=== PATIENT | female | born 1970 | race Caucasian/White ===

== ENCOUNTER 2024-02-15 20:35 | Emergency (ER) | payer OTHER, SELFPAY ==
[2024-02-15 20:50] VITALS: BP 139/74; PULSE 78; RESP 18; TEMP 36.9; O2SAT 99; BMI 30.8
--- NOTE | 2024-02-15 21:23 | ED.GENADULT ---
HPI - General Adult General Chief complaint: Hip Injury/Pain Stated complaint: R hip pain Time Seen by Provider: 02/15/24 21:08 History of Present Illness HPI narrative: CC: Right Hip Pain pt. with pain since friday. worse today. denies injury. 53-year-old woman presenting to the emergency department with complaint of right back or hip area pain over the last couple of days. 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 Does not identify specific injury but may have contributed. No radicular symptoms at least down her leg. No trauma. No dysuria frequency urgency or hematuria. No history kidney stones. Denies a history of back trouble in particular. Initially described on presentation that she thinks she has a hip problem. Related Data Home Medications ?Medication ?Instructions ?Recorded ?Confirmed famotidine 20 mg tablet 20 mg PO 3XD PRN 02/15/24 02/15/24 Allergies Allergy/AdvReac Type Severity Reaction Status Date / Time No Known Drug Allergies Allergy Verified 02/15/24 20:52 Review of Systems Status of ROS: Reports: 6 or more systems reviewed and unremarkable except as noted in History and below PFSH PFS Social History Smoking Status: Never smoker Do you use any of these nicotine containing products: None Second hand tobacco smoke exposure: No How often do you have a drink containing alcohol: never How often do you have six or more drinks on one occasion: Never AUDIT-C Alcohol total score: 0 Non-prescribed substance use: denies use service: No Exam Narrative: Exam Narrative: Pleasant. Clearly uncomfortable but not demonstrating excessively. Skin is warm and dry without evidence of injury. Does have good deal of tension surrounding the right SI joint and in the paraspinal musculature above that. No midline back tenderness. No piriformis tenderness. Elevation of right leg causes some discomfort in this area. Negative Uziel's generally. Normal internal and external rotation of the hip. Abdomen is soft nontender. No tenderness to palpation of the greater trochanters. Const: Vital Signs, click to edit/add: Vital Signs - 24 hr 02/15/24 20:50 Temperature 98.5 F Pulse Rate [Right Pulse Oximeter] 78 Respiratory Rate 18 Blood Pressure [Ri ght Upper Arm] 139/74 Pulse Oximetry 99 Oxygen Delivery Me thod Room Air Documenting provider has reviewed patient's vital signs: yes Course Vital Signs Vital signs: Initial Vital Signs Temperature 98.5 F 02/15/24 20:50 Temperature Source Temporal Artery Scan 02/15/24 20:50 Pulse Rate 78 02/15/24 20:50 Respiratory Rate 18 02/15/24 20:50 Blood Pressure 139/74 02/15/24 20:50 Blood Pressure Mean 95 02/15/24 20:50 Blood Pressure Position Supine 02/15/24 20:50 Pulse Oximetry 99 02/15/24 20:50 Oxygen Delivery Method Room Air 02/15/24 20:50 Vital Signs Temperature 98.5 F 02/15/24 20:50 Pulse Rate 78 02/15/24 20:50 Respiratory Rate 18 02/15/24 20:50 Blood Pressure 139/74 02/15/24 20:50 Pulse Oximetry 99 02/15/24 20:50 Oxygen Delivery Method Room Air 02/15/24 20:50 Temperature 98.5 F 02/16/24 00:02 Pulse Rate 74 02/16/24 00:02 Respiratory Rate 18 02/16/24 00:02 Blood Pressure 125/68 02/16/24 00:02 Pulse Oximetry 99 02/16/24 00:02 Oxygen Delivery Method Room Air 02/16/24 00:02 Medications Administered Medications: Discontinued Medications Generic Name Dose Route Start Last Admin Trade Name Freq PRN Reason Stop Dose Admin Cyclobenzaprine HCl 10 mg 02/15/24 21:42 02/15/24 21:57 Cyclobenzaprine Hcl 10 Mg Tablet PO 02/15/24 21:43 10 mg ONCE ONE Administration Lidocaine 1 patch 02/15/24 21:42 02/15/24 21:57 Lidocaine 5% Patch TRANSDERMA 02/15/24 21:43 1 patch ONCE ONE Administration Protocol Oxycodone/Acetaminophen 2 tab 02/15/24 21:42 02/15/24 21:58 Oxycodone/Apap 5-325 Tablet PO 02/15/24 21:43 2 tab ONCE ONE Administration Medical Decision Making MDM Narrative Medical decision making narrative: Seems to have for some reason good deal muscle spasm in the area. I think emanating from the SI joint. No trauma to warrant x-ray imaging at this time and also without significant history of this pain. Given degree of discomfort in the flank area should at least check a urine. I would like to try to break her pain and reassess. Discussed management. Given NSAID Percocet and lidocaine patch due to degree of discomfort. Urinalysis was clear On reassessment overall is improved. Relaxed. See patient discharge plan for further discussion/plan. Lab Data Labs: Lab Results 02/15/24 Range/Units 22:05 Urine Color Yellow (Yellow) Urine Appearance Clear (Clear) Urine pH 5.5 (5.0-8.5) Ur Specific [place] <= 1.005 (1.000-1.030) Urine Protein Negative (Negative) Urine Glucose (UA) Negative (Negative) Urine Ketones Negative (Negative) Urine Blood Negative (Negative) Urine Nitrite Negative (Negative) Urine Bilirubin Negative (Negative) Urine Urobilinogen 0.2 (0.2-1.0) Ur Leukocyte Esterase Negative (Negative) Urine RBC 0-2 (0-2) Urine WBC 0-2 (0-5) Ur Squamous Epith Cells Few (None-Few) Urine Bacteria None (None) Discharge Plan Discharge Clinical Impression: Spasm of muscle of lower back Patient Disposition: Home w/ Parent or Adult Condition: Improved Additional Instructions: It appears that you had some spasm of the muscles of your lower back. This might mean that you have some inflammation of the bones of your spine or perhaps the sacroiliac joint. Please see handouts of exercises that I think will be helpful for you including given the kind of work that you do. Can take up to 800 mg of ibuprofen or up to 1000 mg of acetaminophen per dose. Alternative to the ibuprofen can take up to 500 mg of naproxen 2 times daily. I am prescribing some medication for you from the [facility]. This includes an opiate pain medicine called [place]. Remember that [place] contains 325 mg of acetaminophen per per tablet. Also prescribing prednisone as an anti-inflammatory and cyclobenzaprine as a ?muscle relaxer? from [employer]. If this lidocaine patch is helpful, you can purchase more [id number]. Parece que tuviste alg?n espasmo en los m?sculos de la parte baja de la espalda. [place] podr?a significar que tiene alguna inflamaci?n de los huesos de la [place] vertebral o loraine vez de la articulaci?n sacroil?calderon. Por favor, bre los folletos de ejercicios que creo que ser?n ?tiles para usted, incluso dado el tipo de trabajo que realiza. Puede devika hasta 800 mg de ibuprofeno o hasta 1000 mg de paracetamol por dosis. Alternativa al ibuprofeno puede devika hasta 500 mg de naproxeno 2 veces al d?a. Le estoy recetando algunos medicamentos de [facility]. [place] incluye un analg?sico opi?lead driver llamado [place]. Recuerde que [place] contiene 325 mg de acetaminof?n por tableta. Tambi?n prescribe prednisona zora antiinflamatorio y ciclobenzaprina zora relajante muscular de [facility]. Si calista parche de lidoca?na es ?til, puede comprar m?s de venta real. Prescriptions: No Action famotidine 20 mg tablet 20 mg PO 3XD PRN Follow Up/Referrals: Dustin Bell MD [Primary Care Provider] - Stand Alone Forms: [facility] Info Instructions
[2024-02-15] MEDS: CYCLOBENZAPRINE HCL 10 MG TABLET PO (21:57)
[2024-02-15] MEDS: LIDOCAINE 5% PATCH 1 PATCH TRANSDERMA (21:57)
[2024-02-15] MEDS: OxyCODONE/APAP 5-325 TABLET 2 TAB PO (21:58)
--- OUTSIDE RECORDS SUMMARY | 2024-02-15 22:00 | XMS_ITS | Data Portability ---
Author Name Unknown Address [address] [place] [id number] Phone [phone] Organization [place] - [facility] Address [address] [place] [address] [place] [address] Assessment No assessment recorded. Plan of Treatment Reminders Order Date Submit Date Provider Last Modified By Organization Details Last Modified Time Details Appointments None recorde d. Lab fecal occult blood, stool 2021 022 [facility], [address] [place], [address], 2 13:10:22 HbA1c (hemogl obin A1c), blood 2021 022 [facility], [address] [place] [address], [address], 2 17:09:09 BMP, serum or plasma 2021 022 [facility], [address] [place] [address], [address], 2 17:07:36 CBC w/ diff 2021 022 [facility], [address] [place] [address], [address], 2 17:08:31 lipid panel, blood 2020 021 [facility], [address] [place] [address], [address], 1 11:04:20 lipid panel, serum 2019 020 [facility], [address] [place] [address], [address], 1 15:02:19 hemoglo bin A1C/hem oglobin total, QN, blood 2019 020 [facility], [address] [place] [address], [address], 1 15:02:19 ferriti n, serum or plasma 2019 020 [facility] Not available 0 14:49:59 CMP, serum or plasma 2019 020 [facility], [address] [place] [address], [address], 0 14:49:59 HbA1c (hemogl obin A1c), blood 2019 020 [facility], [address] [place] [address], [address], 0 14:49:59 urinaly sis, dipstic k 2019 020 [facility], [address] [place] [address], [address], 0 14:49:59 TSH, serum or plasma 2019 020 [facility], [address] [place] [address], [address], 0 14:51:09 Referral orthope dic surgeon referra l 2022 023 [email or web address] Not available 3 10:53:25 communi ty health worker referra l 2021 022 [email or web address] Not available 2 13:31:27 Procedures None recorde d. Surgeries None recorde d. Imaging XR, wrist, 3 or more view 2022 023 [facility] Rad[facility], [address] [place], [address], 3 11:06:37 DEXA, axial skeleto n 2022 023 [facility] Radiology Department, [address] [place], [address], 3 16:44:09 XR, chest, 2 view - Pre-op 2021 022 [email or web address] Not available 2 14:14:29 electro cardiog mell - Pre-op 2021 022 [facility] Not available 2 16:06:25 Medication Orders naproxe n 500 mg tablet [address] [facility], [address] [place], [address], 3 14:13:11 famotid ine 20 [address] [facility], [address] [place], [address], 3 11:54:08 Voltare n Arthrit is Pain 1 % topical gel [address] [facility], [address] [place], [address], 3 11:53:24 famotid ine [address] [facility], [address] [place], [address], 2 18:24:49 Clariti n 10 mg tablet [address] [facility], [address] [place], [address], 2 18:24:32 tacroli mus 0.1 % topical ointmen t 2021 [address] [address], [address], 15:56:11 buspiro ne 10 mg tablet [address], [address], 11:57:35 triamci nolone acetoni de 0.1 % topical cream [address], [address], 15:56:13 Patient TargetsNo targets recorded. Patient Instructions Encounter Date Encounter Id Patient Instructions Last Modified By Organization Details Last Modified Time 03/11/2023 [id number] watch for indigestion from shahnaz, add vitamins wilian Not available 03/11/2023 18:26:58 01/28/2023 [id number] coordination of care* - needs optometry [email or web address] Not available 02/05/2023 04:28:19 11/06/2021 [id number] needs support an d follow up wilian Not available 11/06/2021 20:40:08 10/09/2021 [id number] record release wilian Not available 10/09/2021 19:31:05 06/12/2021 low cholesterol diet wilian Not available 06/12/2021 18:39:45 09/05/2020 [id number] low cholesterol diet wilian Not available 09/05/2020 19:16:30 04/11/2020 [id number] Read about RLS o n internet. I will order some labs to rule out other treatable possibilites, then let's talk together in 1-2 weeks. [email or web address] Not available 04/12/2020 16:09:29 Reason for Referral Community Health Worker Refe rral for Prediabetes Referring Physician: Kay Davidson, Family Medicine, Encounter Date: 03/14/2022 Orthopedic Surgeon Referral for Pain of left wrist Referring Physician: Dustin Bell, Internal Medicine, Encounter Date: 03/11/2023 Results Created Date Observation Date Name Description Value Unit Range Abnormal Flag LastModifiedBy Organization Detail LastModifiedTime 10/17/2020 CMP, serum or plasm a creatinine 0.6 Not Available [address], [address], 10/17/2020 15:02:19 10/17/2020 CMP, serum or plasm a ALT 23 Not Available [facility] [address] [place] [address], [address], 10/17/2020 15:02:19 10/17/2020 TSH, serum or plasm a creatinine 0.6 Not Available [address], [address], 10/17/2020 15:02:19 10/17/2020 TSH, serum or plasm a ALT 23 Not Available [facility] [address] [place] [address], [address], 10/17/2020 15:02:19 10/17/2020 lipid panel , serum creatinine 0.6 Not Available [address], [address], 10/17/2020 15:02:19 10/17/2020 lipid panel , serum ALT 23 Not Available [facility] [address] [place] [address], [address], 10/17/2020 15:02:19 08/25/2020 TSH, serum or plasm a white blood count 6.01 Not Available [address], [address], 08/25/2020 14:51:09 08/25/2020 TSH, serum or plasm a hemoblobin 14.4 Not Available [address], [address], 08/25/2020 14:51:09 08/25/2020 TSH, serum or plasm a platelet count 281 Not Available [address], [address], 08/25/2020 14:51:09 08/25/2020 TSH, serum or plasm a A1C 5.8 Not Available [facility] [address] [place] [address], [address], 08/25/2020 14:51:09 08/25/2020 TSH, serum or plasm a createnine 0.6 Not Available [address], [address], 08/25/2020 14:51:09 08/25/2020 TSH, serum or plasm a ALT 23 Not Available [address], [address], 08/25/2020 14:51:09 08/25/2020 TSH, serum or plasm a total cholesterol 216 high Not Available [address], [address], 08/25/2020 14:51:09 08/25/2020 TSH, serum or plasm a triglyceride s 176 Not Available [address], [address], 08/25/2020 14:51:09 08/25/2020 TSH, serum or plasm a HDL 55 Not Available [facility] [address] [place] [address], [address], 08/25/2020 14:51:09 08/25/2020 TSH, serum or plasm a LDL 126 high Not Available [facility] [address] [place] [address], [address], 08/25/2020 14:51:09 08/25/2020 TSH, serum or plasm a ferritin 87 Not Available [address], [address], 08/25/2020 14:51:09 08/25/2020 TSH, serum or plasm a TSH 1.990 Not Available [facility] [address] [place] [address], [address], 08/25/2020 14:51:09 08/22/2008/22/2020 rosalba tin, serum or plasm a white blood count 6.01 Not Available [address], [address], 08/25/2020 14:49:59 08/22/2008/22/2020 rosalba tin, serum or plasm a hemoblobin 14.4 Not Available [address], [address], 08/25/2020 14:49:59 08/22/2008/22/2020 rosalba tin, serum or plasm a platelet count 281 Not Available [facility] [address] [place] [address], [address], 08/25/2020 14:49:59 08/22/2008/22/2020 rosalba tin, serum or plasm a A1C 5.8 Not Available [facility] [address] [place] [address], [address], 08/25/2020 14:49:59 08/22/2008/22/2020 rosalba tin, serum or plasm a createnine 0.6 Not Available [facility] [address] [place] [address], [address], 08/25/2020 14:49:59 08/22/2008/22/2020 rosalba tin, serum or plasm a ALT 23 Not Available [facility] [address] [place] [address], [address], 08/25/2020 14:49:59 08/22/2008/22/2020 rosalba tin, serum or plasm a total cholesterol 216 high Not Available [address], [address], 08/25/2020 14:49:59 08/22/20 20 08/22/2020 rosalba tin, serum or plasm a triglyceride s 176 Not Available [address], [address], 08/25/2020 14:49:59 08/22/20 20 08/22/2020 rosalba tin, serum or plasm a HDL 55 Not Available [facility] [address] [place] [address], [address], 08/25/2020 14:49:59 08/22/20 20 08/22/2020 rosalba tin, serum or plasm a LDL 126 high Not Available [facility] [address] [place] [address], [address], 08/25/2020 14:49:59 08/22/20 20 08/22/2020 rosalba tin, serum or plasm a ferritin 87 Not Available [facility] [address] [place] [address], [address], 08/25/2020 14:49:59 08/22/20 20 08/22/2020 rosalba tin, serum or plasm a TSH 1.990 Not Available [facility] [address] [place] [address], [address], 08/25/2020 14:49:59 08/22/20 20 08/22/2020 lipid panel , serum white blood count 6.01 Not Available [address], [address], 08/25/2020 14:49:59 08/22/20 20 08/22/2020 lipid panel , serum hemoblobin 14.4 Not Available [address], [address], 08/25/2020 14:49:59 08/22/20 20 08/22/2020 lipid panel , serum platelet count 281 Not Available [address], [address], 08/25/2020 14:49:59 08/22/20 20 08/22/2020 lipid panel , serum A1C 5.8 Not Available [facility] [address] [place] [address], [address], 08/25/2020 14:49:59 08/22/20 20 08/22/2020 lipid panel , serum createnine 0.6 Not Available [facility] [address] [place] [address], [address], 08/25/2020 14:49:59 08/22/2008/22/2020 lipid panel , serum ALT 23 Not Available [facility] [address] [place] [address], [address], 08/25/2020 14:49:59 08/22/2008/22/2020 lipid panel , serum total cholesterol 216 high Not Available [address], [address], 08/25/2020 14:49:59 08/22/2008/22/2020 lipid panel , serum triglyceride s 176 Not Available [address], [address], 08/25/2020 14:49:59 08/22/2008/22/2020 lipid panel , serum HDL 55 Not Available [facility] [address] [place] [address], [address], 08/25/2020 14:49:59 08/22/2008/22/2020 lipid panel , serum LDL 126 high Not Available [facility] [address] [place] [address], [address], 08/25/2020 14:49:59 08/22/2008/22/2020 lipid panel , serum ferritin 87 Not Available [facility] [address] [place] [address], [address], 08/25/2020 14:49:59 08/22/20 20 08/22/2020 lipid panel , serum TSH 1.990 Not Available [facility] [address] [place] [address], [address], 08/25/2020 14:49:59 08/22/20 20 08/22/2020 CMP, serum or plasm a white blood count 6.01 Not Available [address], [address], 08/25/2020 14:49:59 08/22/2008/22/2020 CMP, serum or plasm a hemoblobin 14.4 Not Available [address], [address], 08/25/2020 14:49:59 08/22/2008/22/2020 CMP, serum or plasm a platelet count 281 Not Available [address], [address], 08/25/2020 14:49:59 08/22/2008/22/2020 CMP, serum or plasm a A1C 5.8 Not Available [facility] [address] [place] [address], [address], 08/25/2020 14:49:59 08/22/2008/22/2020 CMP, serum or plasm a createnine 0.6 Not Available [address], [address], 08/25/2020 14:49:59 08/22/2008/22/2020 CMP, serum or plasm a ALT 23 Not Available [facility] [address] [place] [address], [address], 08/25/2020 14:49:59 08/22/2008/22/2020 CMP, serum or plasm a total cholesterol 216 high Not Available [address], [address], 08/25/2020 14:49:59 08/22/20 20 08/22/2020 CMP, serum or plasm a triglyceride s 176 Not Available [address], [address], 08/25/2020 14:49:59 08/22/2008/22/2020 CMP, serum or plasm a HDL 55 Not Available [facility] [address] [place] [address], [address], 08/25/2020 14:49:59 08/22/2008/22/2020 CMP, serum or plasm a LDL 126 high Not Available [facility] [address] [place] [address], [address], 08/25/2020 14:49:59 08/22/2008/22/2020 CMP, serum or plasm a ferritin 87 Not Available [facility] [address] [place] [address], [address], 08/25/2020 14:49:59 08/22/2008/22/2020 CMP, serum or plasm a TSH 1.990 Not Available [facility] [address] [place] [address], [address], 08/25/2020 14:49:59 08/22/2008/22/2020 HbA1c (hemo globi n A1c), blood white blood count 6.01 Not Available [address], [address], 08/25/2020 14:49:59 08/22/2008/22/2020 HbA1c (hemo globi n A1c), blood hemoblobin 14.4 Not Available [facility] [address] [place] [address], [address], 08/25/2020 14:49:59 08/22/2008/22/2020 HbA1c (hemo globi n A1c), blood platelet count 281 Not Available [address], [address], 08/25/2020 14:49:59 08/22/2008/22/2020 HbA1c (hemo globi n A1c), blood A1C 5.8 Not Available [facility] [address] [place] [address], [address], 08/25/2020 14:49:59 08/22/2008/22/2020 HbA1c (hemo globi n A1c), blood createnine 0.6 Not Available [facility] [address] [place] [address], [address], 08/25/2020 14:49:59 08/22/2008/22/2020 HbA1c (hemo globi n A1c), blood ALT 23 Not Available [facility] [address] [place] [address], [address], 08/25/2020 14:49:59 08/22/2008/22/2020 HbA1c (hemo globi n A1c), blood total cholesterol 216 high Not Available [facility] [address] [place] [address], [address], 08/25/2020 14:49:59 08/22/2008/22/2020 HbA1c (hemo globi n A1c), blood triglyceride s 176 Not Available [address], [address], 08/25/2020 14:49:59 08/22/2008/22/2020 HbA1c (hemo globi n A1c), blood HDL 55 Not Available [facility] [address] [place] [address], [address], 08/25/2020 14:49:59 08/22/2008/22/2020 HbA1c (hemo globi n A1c), blood LDL 126 high Not Available [facility] [address] [place] [address], [address], 08/25/2020 14:49:59 08/22/2008/22/2020 HbA1c (hemo globi n A1c), blood ferritin 87 Not Available [facility] [address] [place] [address], [address], 08/25/2020 14:49:59 08/22/20 20 08/22/2020 HbA1c (hemo globi n A1c), blood TSH 1.990 Not Available [facility] [address] [place] [address], [address], 08/25/2020 14:49:59 08/22/20 20 08/22/2020 urina lysis , dipst ick white blood count 6.01 Not Available [facility] [address] [place] [address], [address], 08/25/2020 14:49:59 08/22/2008/22/2020 urina lysis , dipst ick hemoblobin 14.4 Not Available [facility] [address] [place] [address], [address], 08/25/2020 14:49:59 08/22/2008/22/2020 urina lysis , dipst ick platelet count 281 Not Available [facility] [address] [place] [address], [address], 08/25/2020 14:49:59 08/22/2008/22/2020 urina lysis , dipst ick A1C 5.8 Not Available [facility] [address] [place] [address], [address], 08/25/2020 14:49:59 08/22/2008/22/2020 urina lysis , dipst ick createnine 0.6 Not Available [facility] [address] [place] [address], [address], 08/25/2020 14:49:59 08/22/2008/22/2020 urina lysis , dipst ick ALT 23 Not Available [facility] [address] [place] [address], [address], 08/25/2020 14:49:59 08/22/20 20 08/22/2020 urina lysis , dipst ick total cholesterol 216 high Not Available [facility] [address] [place] [address], [address], 08/25/2020 14:49:59 08/22/2008/22/2020 urina lysis , dipst ick triglyceride s 176 Not Available [facility] [address] [place] [address], [address], 08/25/2020 14:49:59 08/22/2008/22/2020 urina lysis , dipst ick HDL 55 Not Available [facility] [address] [place] [address], [address], 08/25/2020 14:49:59 08/22/2008/22/2020 urina lysis , dipst ick LDL 126 high Not Available [facility] [address] [place] [address], [address], 08/25/2020 14:49:59 08/22/2008/22/2020 urina lysis , dipst ick ferritin 87 Not Available [facility] [address] [place] [address], [address], 08/25/2020 14:49:59 08/22/2008/22/2020 urina lysis , dipst ick TSH 1.990 Not Available [facility] [address] [place] [address], [address], 08/25/2020 14:49:59 08/22/20 20 08/22/2020 CBC w/ auto diff white blood count 6.01 Not Available [facility] [address] [place] [address], [address], 08/25/2020 14:40:50 08/22/2008/22/2020 CBC w/ auto diff hemoblobin 14.4 Not Available [facility] [address] [place] [address], [address], 08/25/2020 14:40:50 08/22/20 20 08/22/2020 CBC w/ auto diff platelet count 281 Not Available [facility] [address] [place] [address], [address], 08/25/2020 14:40:50 08/22/20 20 08/22/2020 CBC w/ auto diff A1C 5.8 Not Available [facility] [address] [place] [address], [address], 08/25/2020 14:40:50 08/22/20 20 08/22/2020 CBC w/ auto diff createnine 0.6 Not Available [facility] [address] [place] [address], [address], 08/25/2020 14:40:50 08/22/20 20 08/22/2020 CBC w/ auto diff ALT 23 Not Available [facility] [address] [place] [address], [address], 08/25/2020 14:40:50 08/22/20 20 08/22/2020 CBC w/ auto diff total cholesterol 216 high Not Available [facility] [address] [place] [address], [address], 08/25/2020 14:40:50 08/22/20 20 08/22/2020 CBC w/ auto diff triglyceride s 176 Not Available [address], [address], 08/25/2020 14:40:50 08/22/20 20 08/22/2020 CBC w/ auto diff HDL 55 Not Available [facility] [address] [place] [address], [address], 08/25/2020 14:40:50 08/22/20 20 08/22/2020 CBC w/ auto diff LDL 126 high Not Available [facility] [address] [place] [address], [address], 08/25/2020 14:40:50 08/22/20 20 08/22/2020 CBC w/ auto diff ferritin 87 Not Available [facility] [address] [place] [address], [address], 08/25/2020 14:40:50 08/22/2008/22/2020 CBC w/ auto diff TSH 1.990 Not Available [facility] [address] [place] [address], [address], 08/25/2020 14:40:50 08/22/20 20 08/22/2020 hemog lobin A1C/h emogl obin total , QN, blood creatinine 0.6 Not Available [facility] [address] [place] [address], [address], 10/17/2020 12:22:40 08/22/20 20 08/22/2020 hemog lobin A1C/h emogl obin total , QN, blood ALT 23 Not Available [facility] [address] [place] [address], [address], 10/17/2020 12:22:40 05/23/20 21 05/23/2021 CMP, serum or plasm a ALT 22 Not Available [facility] [address] [place] [address], [address], 05/23/2021 16:36:21 05/23/20 21 05/23/2021 CMP, serum or plasm a creatinine .9 Not Available [facility] [address] [place] [address], [address], 05/23/2021 16:36:21 05/23/2005/23/2021 CMP, serum or plasm a HDL 59 Not Available [facility] [address] [place] [address], [address], 05/23/2021 16:36:21 05/23/2005/23/2021 CMP, serum or plasm a LDL 122 Not Available [facility] [address] [place] [address], [address], 05/23/2021 16:36:21 05/23/2005/23/2021 CMP, serum or plasm a total 214 Not Available [facility] [address] [place] [address], [address], 05/23/2021 16:36:21 05/23/2005/23/2021 CMP, serum or plasm a trigliceride s 166 Not Available [address], [address], 05/23/2021 16:36:21 05/23/2005/23/2021 CMP, serum or plasm a microalbumin <[address] [facility] [address] [place] [address], [address], 05/23/2021 16:36:21 05/23/2005/23/2021 CMP, serum or plasm a creatinine 125 Not Available [facility] [address] [place] [address], [address], 05/23/2021 16:36:21 05/23/2005/23/2021 CMP, serum or plasm a HGB 14.4 Not Available [facility] [address] [place] [address], [address], 05/23/2021 16:36:21 05/23/2005/23/2021 CMP, serum or plasm a platelets 277 Not Available [facility] [address] [place] [address], [address], 05/23/2021 16:36:21 05/23/2005/23/2021 CMP, serum or plasm a WBC 5.27 Not Available [facility] [address] [place] [address], [address], 05/23/2021 16:36:21 05/23/2005/23/2021 CMP, serum or plasm a hga1c 5.7 Not Available [facility] [address] [place] [address], [address], 05/23/2021 16:36:21 05/23/20 21 05/23/2021 HbA1c (hemo globi n A1c), blood ALT 22 Not Available [facility] [address] [place] [address], [address], 05/24/2021 13:08:48 05/23/20 21 05/23/2021 HbA1c (hemo globi n A1c), blood creatinine .9 Not Available [facility] [address] [place] [address], [address], 05/24/2021 13:08:48 05/23/20 21 05/23/2021 HbA1c (hemo globi n A1c), blood HDL 59 Not Available [facility] [address] [place] [address], [address], 05/24/2021 13:08:48 05/23/20 21 05/23/2021 HbA1c (hemo globi n A1c), blood LDL 122 Not Available [facility] [address] [place] [address], [address], 05/24/2021 13:08:48 05/23/20 21 05/23/2021 HbA1c (hemo globi n A1c), blood total 214 Not Available [facility] [address] [place] [address], [address], 05/24/2021 13:08:48 05/23/20 21 05/23/2021 HbA1c (hemo globi n A1c), blood trigliceride s 166 Not Available [address], [address], 05/24/2021 13:08:48 05/23/20 21 05/23/2021 HbA1c (hemo globi n A1c), blood microalbumin <[address] [facility] [address] [place] [address], [address], 05/24/2021 13:08:48 05/23/20 21 05/23/2021 HbA1c (hemo globi n A1c), blood creatinine 125 Not Available [facility] [address] [place] [address], [address], 05/24/2021 13:08:48 05/23/20 21 05/23/2021 HbA1c (hemo globi n A1c), blood HGB 14.4 Not Available [facility] [address] [place] [address], [address], 05/24/2021 13:08:48 05/23/20 21 05/23/2021 HbA1c (hemo globi n A1c), blood platelets 277 Not Available [facility] [address] [place] [address], [address], 05/24/2021 13:08:48 05/23/20 21 05/23/2021 HbA1c (hemo globi n A1c), blood WBC 5.27 Not Available [facility] [address] [place] [address], [address], 05/24/2021 13:08:48 05/23/20 21 05/23/2021 HbA1c (hemo globi n A1c), blood hga1c 5.7 Not Available [facility] [address] [place] [address], [address], 05/24/2021 13:08:48 05/23/20 21 05/23/2021 CBC w/ auto diff ALT 22 Not Available [facility] [address] [place] [address], [address], 05/24/2021 13:08:48 05/23/20 21 05/23/2021 CBC w/ auto diff creatinine .9 Not Available [facility] [address] [place] [address], [address], 05/24/2021 13:08:48 05/23/20 21 05/23/2021 CBC w/ auto diff HDL 59 Not Available [facility] [address] [place] [address], [address], 05/24/2021 13:08:48 05/23/20 21 05/23/2021 CBC w/ auto diff LDL 122 Not Available [facility] [address] [place] [address], [address], 05/24/2021 13:08:48 05/23/20 21 05/23/2021 CBC w/ auto diff total 214 Not Available [facility] [address] [place] [address], [address], 05/24/2021 13:08:48 05/23/20 21 05/23/2021 CBC w/ auto diff trigliceride s 166 Not Available [address], [address], 05/24/2021 13:08:48 05/23/20 21 05/23/2021 CBC w/ auto diff microalbumin <[address] [facility] [address] [place] [address], [address], 05/24/2021 13:08:48 05/23/20 21 05/23/2021 CBC w/ auto diff creatinine 125 Not Available [facility] [address] [place] [address], [phone], 05/24/2021 13:08:48 05/23/20 21 05/23/2021 CBC w/ auto diff HGB 14.4 Not Available [facility] Office [address] [place] [address], [address], 05/24/2021 13:08:48 05/23/20 21 05/23/2021 CBC w/ auto diff platelets 277 Not Available [facility] [address] [place] [address], [address], 05/24/2021 13:08:48 05/23/20 21 05/23/2021 CBC w/ auto diff WBC 5.27 Not Available [facility] [address] [place] [address], [address], 05/24/2021 13:08:48 05/23/20 21 05/23/2021 CBC w/ auto diff hga1c 5.7 Not Available [facility] Office [address] [place] [address], [address], 05/24/2021 13:08:48 05/23/20 21 05/23/2021 micro album in, urine ALT 22 Not Available [facility] Office [address] [place] [address], [address], 05/24/2021 13:08:48 05/23/20 21 05/23/2021 micro album in, urine creatinine .9 Not Available [address], [address], 05/24/2021 13:08:48 05/23/20 21 05/23/2021 micro album in, urine HDL 59 Not Available [facility] Office [address] [place] [address], [address], 05/24/2021 13:08:48 05/23/20 21 05/23/2021 micro album in, urine LDL 122 Not Available [facility] Office [address] [place] [address], [address], 05/24/2021 13:08:48 05/23/20 21 05/23/2021 micro album in, urine total 214 Not Available [facility] Office [address] [place] [address], [address], 05/24/2021 13:08:48 05/23/20 21 05/23/2021 micro album in, urine trigliceride s 166 Not Available [address], [address], 05/24/2021 13:08:48 05/23/20 21 05/23/2021 micro album in, urine microalbumin <1 Not Available [address], [address], 05/24/2021 13:08:48 05/23/20 21 05/23/2021 micro album in, urine creatinine 125 Not Available [address], [address], 05/24/2021 13:08:48 05/23/20 21 05/23/2021 micro album in, urine HGB 14.4 Not Available [facility] Office [address] [place] [address], [address], 05/24/2021 13:08:48 05/23/20 21 05/23/2021 micro album in, urine platelets 277 Not Available [facility] Office [address] [place] [address], [address], 05/24/2021 13:08:48 05/23/20 21 05/23/2021 micro album in, urine WBC 5.27 Not Available [facility] Office [address] [place] [address], [address], 05/24/2021 13:08:48 05/23/20 21 05/23/2021 micro album in, urine hga1c 5.7 Not Available [facility] Office [address] [place] [address], [address], 05/24/2021 13:08:48 05/23/20 21 05/23/2021 lipid panel , serum ALT 22 Not Available [facility] Office [address] [place] [address], [address], 05/24/2021 13:08:48 05/23/20 21 05/23/2021 lipid panel , serum creatinine .9 Not Available [address], [address], 05/24/2021 13:08:48 05/23/20 21 05/23/2021 lipid panel , serum HDL 59 Not Available [facility] Office [address] [place] [address], [address], 05/24/2021 13:08:48 05/23/20 21 05/23/2021 lipid panel , serum LDL 122 Not Available [address], [address], 05/24/2021 13:08:48 05/23/20 21 05/23/2021 lipid panel , serum total 214 Not Available [facility] Office [address] [place] [address], [address], 05/24/2021 13:08:48 05/23/20 21 05/23/2021 lipid panel , serum trigliceride s 166 Not Available [address], [address], 05/24/2021 13:08:48 05/23/20 21 05/23/2021 lipid panel , serum microalbumin <1 Not Available [address], [address], 05/24/2021 13:08:48 05/23/20 21 05/23/2021 lipid panel , serum creatinine 125 Not Available [address], [address], 05/24/2021 13:08:48 05/23/20 21 05/23/2021 lipid panel ,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
--- OUTSIDE RECORDS SUMMARY | 2024-02-15 22:00 | XMS_ITS | Clinical Summary ---
Author Name Unknown Organization [facility] Address [place], [place] [address] Care Team Providers Care Hogshead Liner Name Role Phone SebleShanon cedeño MD Primary Care Provider Allergies Active Allergy Reactions Criticality Noted Date Comments Penicillins Stomach Upset 12/04/2007 Medications Medication Sig Dispensed Refills Start Date End Date Status famotidine (PEPCID) 20 mg tabletIndications:LP RD (laryngopharyngeal reflux disease) Take 1 Tablet (20 mg) by mouth at bedtime. May use twice daily as needed. 90 Tablet 3 11/28/2023 Active artificial tears, peg 400 0.4%-propylene glycol 0.3%, (Systane, propylene glycoL,) ophthalmicIndication s:Allergic conjunctivitis of both eyes Instill one drop in each eye 4x/day for 1 week for irritation 10 mL 01/15/2024 Active ketotifen (Zaditor) 0.025 % (0.035 %) ophthalmic solutionIndications: Allergic conjunctivitis of both eyes Place 1 Drop into both eyes two times daily. 5 mL 01/15/2024 Active fluorometholone (FML Liquifilm) 0.1 % ophthalmic suspensionIndication s:Allergic conjunctivitis of both eyes Instill one drop in each eye 4x/day for 1 week then 3x/day for 1 week then 2x/day for 1 week then 1x/day for 1 week then stop 10 mL 02/05/2024 Active fluorometholone (FML) 0.1 % ophthalmic suspensionIndication s:Allergic conjunctivitis of both eyes Place 1 Drop into both eyes four times daily for 7 days. 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 Regular astigmatism 01/31/2006 Lattice degeneration of peripheral retina 2005 Pterygium, unspecified 01/31/2006 Resolved Problems Problem Noted Date Diagnosed Date Resolved Date Other abnormal Papanicolaou smear of cervix and cervical HPV(795.09) 01/24/2009 05/26/2019 Overview: ELZBIETA 1 on colp 01/19 Myopia 01/31/2006 12/30/2008 Encounters Date Type Department Care Team Description 02/15/2024 Nurse Triage [facility] [address] [place] [address] Shanon Pruett MD Hip Pain/problem 02/05/2024 2:40 PM CDT Office Visit [facility] [address] [place] [phone] Lian Whitmore, OD Eye Problem 02/05/2024 Travel 01/15/2024 11:00 AM CDT Office Visit [facility] [address] [place] [phone] Lian Whitmore, OD Eye Problem (Itchy red eyes) 01/15/2024 Travel 12/01/2023 Telephone [facility] [address] [place] [address] Shanon Pruett MD Results 11/28/2023 2:20 PM EXPERIENCE PLANNING STRATEGIST Ancillary Procedure [facility] [address] [place] [place] [address] 11/28/2023 1:10 PM EXPERIENCE PLANNING STRATEGIST Office Visit [facility] [place] [address] Shanon Pruett MD Physical (53 yr/Left shoulder hurts on and off, currently it is not) 11/28/2023 Travel from Last 3 Months Immunizations Name Administration Dates Next Due AMB Influenza, IIV3 (Age >=3 years)(Flu Clinic Only) 09/13/2011,08/30/2010 Hepatitis B (Adult) 09/18/2023,08/19/2023 Influenza A (H1N1), Inactivated 09/29/2009 Influenza, IIV3 (Age 6-35 mos) 09/13/2011 Influenza, IIV3 (Age >=3 years) 10/04/2013,09/21,08/30/2010 Influenza, IIV4 06/16/2018 Influenza, IIV4 (=>6mos) MDV 08/19/2023 MMR 09/18/2023,08/19/2023 Td, Preservative Free (age >= 7 Years) 9 Tdap 08/19/2023,12/30/2008 Family History Medical History Relation Name Comments Good Health Brother 1 Good Health Brother 2 Good Health Brother 3 Good Health Father Good Health Mother Good Health Sister Cancer-breast No Family History Cancer-ovarian No Family History Relation Name Status Comments Brother 1 Brother 2 Brother 3 Father Maternal Grandfather Maternal Grandmother CAD Mother Paternal Grandfather Paternal Grandmother Sister Social History Tobacco Use Types Packs/Day Years Used Date Smoking Tobacco: Never Smokeless Tobacco: Never Tobacco Cessation:Counseling Given: Yes Alcohol Use Standard Drinks/Week Comments No 0 (1 standard drink = 0.6 oz pur e alcohol) PHQ-2 Answer Date Recorded PHQ-2 TOTAL SCORE 4 11/28/2023 Social Connections Answer Date Recorded Frequency of Communication with Friends and Fami ly 0 11/28/2023 Financial Resource Strain Answer Date R ecorded Difficulty of Paying Living Expenses 2 11/28/2023 Difficulty of Paying Living Expenses 1 11/28/2023 Food Insecurity Answer Date Recorded Worried About Running Out of Food in the Last Ye ar 2 11/28/2023 Transportation Needs Answer Date Record ed Lack of Transportation (Medical) 2 11/28/2023 Housing Stability Answer Date Recorded Unable to Pay for Housing in the Last Year 1 11/28/2023 Sex and Gender Information Value Date Recorded Sex Assigned at Not on file Gender Identity Not on file Sexual Orientation Not on file Obstetrics History Para Term AB IAB SAB Ectopic Multiple Livin g Live Births 3 2 2 Date Outcome GA Total Labor Labor/2nd/3rd Weight Sex Delivery Anes PTL Valerie A1 A5 Name Cl in Para Para Comments Had one late loss in third t rimester. Unknown cause, per her report. Last Filed Vital Signs Vital Sign Reading Time Taken Comments Blood Pressure 104/68 11/28/2023 1:21 PM EXPERIENCE PLANNING STRATEGIST Pulse 66 11/28/2023 1:21 PM EXPERIENCE PLANNING STRATEGIST Temperature 36.8 ??C (98.2 ??F) 08/28/2018 10:[address] Respiratory Rate 16 04/28/2019 3:12 PM CDT Oxygen Saturation 98% 11/28/2023 1:21 PM EXPERIENCE PLANNING STRATEGIST Inhaled Oxygen Concentration - - Weight 82.6 kg (182 lb) 11/28/2023 1:21 PM EXPERIENCE PLANNING STRATEGIST Height 161.3 cm (5' 3.5) 11/28/2023 1:21 PM EXPERIENCE PLANNING STRATEGIST Body Mass Index 31.73 11/28/2023 1:21 PM EXPERIENCE PLANNING STRATEGIST Plan of Treatment Upcoming Encounters Date Type Department Care Team (Late st Contact Info) Description 03/09/2024 3:00 PM CDT Nutrition/Dietic layo [facility] [address] [place] [address] [address] [place] [address] Health Maintenance Due Date Last Done Comments Colonoscopy through age 75 2014 Zoster (shingles) series for age 50+ (1 of 2) 2019 Influenza for age 50-64 06/13/2024 08/19/20 23, 06/16/2018, 10/04/2013, Additional history exists BMI (ht and wt on same day) for age 18+ 11/28/2024 11/28/2023, 10/11/2022, 09/13/2021, Additional history exists Mammogram for age 45-75 11/28/2024 11/28/19 24, 10/11/2022, 08/20/2021, Additional history exists Depression screening for age 12+ 12/01/2024 12/01/2023, 11/28/2023, 09/14/2021, Additional history exists Lipids for age 45-75 11/28/2028 11/28/2023, 08/22/2022 ([facility] 01/02/2009, Additional history exists Pap test for age 21-65 11/28/2028 , 11/28/2023, 05/11/2019, Additional history exists Tetanus booster 08/19/2033 08/19/2023, 08/0 04/2009, 12/30/2008 Tdap Completed 08/19/2023, 12/30/2008 COVID-19 vaccine series Completed 09/18/20, 02/13/2021, 01/23/2021 HIV for age 15-65 Completed 11/28/2023 Hepatitis C screening for age 18-79 Completed 11/28/2023 Pneumococcal series for age 6-64 Aged Out No longer eligible based on patient's age to complete this topic Procedures Procedure Name Priority Date/Time Associated Diagnosis Comments XR MAMMO GRISELDA BILAT SCREEN Routine 11/28/2023 2:36 PM EXPERIENCE PLANNING STRATEGIST Visit for screening mammogram ANTI HCV Routine 11/28/2023 2:11 PM EXPERIENCE PLANNING STRATEGIST Need for hepatitis C screening test ANTI HIV 1/2 Routine 11/28/2023 2:11 PM EXPERIENCE PLANNING STRATEGIST Screening for HIV (human immunodeficiency virus) HEMOGLOBIN A1C SCREENING Routine 11/28/2023 2:11 PM EXPERIENCE PLANNING STRATEGIST Diabetes mellitus screening LIPID PANEL W REFLEX MEASURED LDL Routine 11/28/2023 2:11 PM EXPERIENCE PLANNING STRATEGIST Lipid screening SOFTWARE PACKAGER THIN PREP PAP SCREEN IMAGED Routine 11/28/2023 1:45 PM EXPERIENCE PLANNING STRATEGIST Cervical cancer screening HPV THIN PREP Routine 11/28/2023 1:45 PM EXPERIENCE PLANNING STRATEGIST Cervical cancer screening from Last 3 Months Results * XR MAMMO GRISELDA BILAT SCREEN (11/28/2023 2:36 PM EXPERIENCE PLANNING STRATEGIST) Anatomical Region Laterality Modality BREASTS, Breast Left, Breast Right Bilateral Mammography Impressions 11/28/2023 11:12 PM EXPERIENCE PLANNING STRATEGIST ??There is no radiographic evidence for malignancy. ??Recommend annual mammograms. MAMMOGRAM ASSESSMENT: ??ACR 1 Negative PATIENTS: You will also receive a letter with your examination results in an easy to read format. ??If you have questions about your results, please contact your referring provider. Narrative 11/28/2023 11:12 PM EXPERIENCE PLANNING STRATEGIST For Patients: As a result of the Cures Act, medical imaging exams and procedure reports are released immediately into your electronic medical record. You may view this report before your referring provider. If you have questions, please contact your health care provider. XR MAMMO GRISELDA BILAT SCREEN [[id number]] CLINICAL HISTORY: ??This is an asymptomatic 53 y.o. patient. INDICATION FOR EXAM: Mammogram Screening. TECHNIQUE: CC & MLO views were obtained. ??This study was evaluated with the assistance of Computer-Aided Detection. Breast Tomosynthesis was used in interpretation. COMPARISON FILM: Yes [email or web address] FINDINGS: ??The breasts are heterogeneously dense, which may obscure small masses. There are no dominant masses, suspicious micro calcifications or areas of architectural distortion. Shanon Pruett MD MAMMO * HEMOGLOBIN A1C SCREENING (11/28/2023 2:11 PM EXPERIENCE PLANNING STRATEGIST) HEMOGLOBIN A1C SCREENING 5.9 <=6.4 % 11/28/2023 9:54 PM EXPERIENCE PLANNING STRATEGIST [facility] Blood BLOOD SPECIMEN / Unknown Venipuncture / Unknown 11/28/2023 2:11 PM EXPERIENCE PLANNING STRATEGIST 11/28/2023 2:13 PM EXPERIENCE PLANNING STRATEGIST Narrative [facility] - 11/28/2023 9:54 PM EXPERIENCE PLANNING STRATEGIST ? (<5.7%) ?Normal ? (5.7% to 6.4%) ? Indicates prediabetes ? (>=6.5%) ? Confirms diabetes Falsely low levels may be seen with: Recent Transfusion, Recent Significant Blood Loss, Hemolytic Diseases, or Falsely elevated levels may be seen with: Untreated Anemias, Splenectomy Shanon Pruett MD CHEMISTRY Performing Organization Address City/[facility]/ZIP Co de Phone Number [facility] [address] [place] [id number], * (ABNORMAL) LIPID PANEL W REFLEX MEASURED LDL (11/28/2023 2:11 PM EXPERIENCE PLANNING STRATEGIST) CHOLESTEROL,TOTAL 220(H) 100 - 199 mg/dL 11/28/2023 9:31 PM EXPERIENCE PLANNING STRATEGIST [facility] Comment: Cholesterol, Total Reference Ranges Desirable <200 mg/dL Borderline 200-239 mg/dL High >=240 mg/dL TRIGLYCERIDES 74 <150 mg/dL 11/28/2023 9:31 PM EXPERIENCE PLANNING STRATEGIST [facility] HDL CHOLESTEROL 70 >40 mg/dL 9:31 PM EXPERIENCE PLANNING STRATEGIST [facility] NON-HDL CHOLESTEROL 150(H) <145 mg/dl 11/28/2023 9:31 PM EXPERIENCE PLANNING STRATEGIST [facility] CHOL/HDL RATIO 3.14 <4.50 11/28/2023 9:31 PM EXPERIENCE PLANNING STRATEGIST [facility] LDL CHOLESTEROL 135(H) <=130 mg/dL 11/28/2023 9:31 PM EXPERIENCE PLANNING STRATEGIST [facility] VLDL CHOLESTEROL 15 <=30 mg/dL 11/28/2023 9:31 PM EXPERIENCE PLANNING STRATEGIST [facility] PROVIDER ORDERED STATUS RANDOM 11/28/2023 9:31 PM EXPERIENCE PLANNING STRATEGIST [facility] Blood BLOOD SPECIMEN / Unknown Venipuncture / Unknown 11/28/2023 2:11 PM EXPERIENCE PLANNING STRATEGIST 11/28/2023 2:13 PM EXPERIENCE PLANNING STRATEGIST Shanon Pruett MD CHEMISTRY Performing Organization Address City/[facility]/ZIP Co de Phone Number [facility] [address] [place] [id number], [place] * ANTI HCV (11/28/2023 2:11 PM EXPERIENCE PLANNING STRATEGIST) HEPATITIS C ANTIBODY Non-Reacti ve Non-React olaf 11/28/2023 9:27 PM EXPERIENCE PLANNING STRATEGIST [facility] Comment:Please note, per www .CDC.gov: If a patient is known to be at high risk of HCV infection, or is symptomatic, and the physician's suspicion of HCV infection is high, HCV RNA testing is often employed and is of diagnostic value, even after an initial negative anti-HCV test result. Blood BLOOD SPECIMEN / Unknown Venipuncture / Unknown 11/28/2023 2:11 PM EXPERIENCE PLANNING STRATEGIST 11/28/2023 2:13 PM EXPERIENCE PLANNING STRATEGIST Shanon Pruett MD SEND OUTS Performing Organization Address [facility]/RUST de Phone Number [facility] [address] [place] [address], * ANTI HIV 1/2 [63118.0] (11/28/2023 2:11 PM EXPERIENCE PLANNING STRATEGIST) [facility] HIV-1/HIV-2 SCREEN Non-Reacti ve Non-Reacti ve 11/28/2023 9:19 PM EXPERIENCE PLANNING STRATEGIST [facility] Comment:HIV-1 p24 and HIV-1/ HIV-2 Ab Not Detected. Blood BLOOD SPECIMEN / Unknown Venipuncture / Unknown 11/28/2023 2:11 PM EXPERIENCE PLANNING STRATEGIST 11/28/2023 2:13 PM EXPERIENCE PLANNING STRATEGIST Shanon Pruett MD SEND OUTS Performing Organization Address [facility]/RUST de Phone Number [facility] [address] [place] [address], * SOFTWARE PACKAGER THIN PREP PAP SCREEN IMAGED (11/28/2023 1:45 PM EXPERIENCE PLANNING STRATEGIST) Pathologist [facility] Case Report Gynecologic Cytology Report ? Case: [id number] ? Authorizing Provider: ??Shanon Pruett MD Collected: ? 11/28/2023 1345 ? Ordering Location: ? [facility] ?? Received: ?11/28/2023 1516 ? Clinic ? First Screen: ?Amparo Burgess ? Specimen: ?SOFTWARE PACKAGER ThinPrep Vial Screening, Cervical ? 12/03/2023 12:50 PM EXPERIENCE PLANNING STRATEGIST [facility] INTERPRETATION/ RESULT NEGATIVE FOR INTRAEPITHELIAL LESION OR MALIGNANCY (NIL) (none) 12/03/2023 12:50 PM EXPERIENCE PLANNING STRATEGIST [facility] IMEN ADEQUACY Satisfactory for evaluation Endocervical cells cannot be evaluated due to severe atrophy 12/03/2023 12:50 PM EXPERIENCE PLANNING STRATEGIST [facility] HPV REQUEST HPV and PAP 12/03/2023 12:50 PM EXPERIENCE PLANNING STRATEGIST [facility] Date of LMP 201912/03/2023 12:50 PM EXPERIENCE PLANNING STRATEGIST [facility] Last Pap Date 05/11/19 12/03/2023 12:50 PM EXPERIENCE PLANNING STRATEGIST [facility] Last Pap Result NIL 12:50 PM EXPERIENCE PLANNING STRATEGIST [facility] Abnormal Pap or [place] Bx in last 5 years No 12/03/2023 12:50 PM EXPERIENCE PLANNING STRATEGIST [facility] Menstrual Status Postmenopausal 12/03/2023 12:50 PM EXPERIENCE PLANNING STRATEGIST [facility] [place] Bx Done Today No 12/03/2023 12:50 PM EXPERIENCE PLANNING STRATEGIST [facility] Additional Information None given 12/03/2023 12:50 PM EXPERIENCE PLANNING STRATEGIST [facility] Comment: Cytology is screened at [facility] - [address], [place] [address] and [facility] - [address], [place] [address] and [facility] - [address] [place] [address] Interpreted at [facility] - [address], [place] [address] Automated Review Successful 12/03/2023 12:50 PM EXPERIENCE PLANNING STRATEGIST [facility] Comment:Specimen processed s uccessfully by automated boxing promoter device, ThinPrep Imaging System, [employer] ANCILLARY TESTING SOFTWARE PACKAGER HPV Ordered, Please see separate report 12/03/2023 12:50 PM EXPERIENCE PLANNING STRATEGIST [facility] Note The pap test is a screening technique, not a diagnostic procedure. It is used primarily to screen for squamous cancers and precursor lesions. Published studies have shown that it is subject to both false negative and false positive results. The pap test should not be used as the sole means to diagnose or exclude pre-malignant and malignant lesions. 12/03/2023 12:50 PM EXPERIENCE PLANNING STRATEGIST [facility] Other (Cervical) Non-Blood / Unknown 11/28/2023 1:45 PM EXPERIENCE PLANNING STRATEGIST 11/28/2023 3:16 PM EXPERIENCE PLANNING STRATEGIST Shanon Pruett MD PATHOLOGY/CYTOL OGY [facility] [address] [place] [address], * HPV HIGH RISK (11/28/2023 1:45 PM EXPERIENCE PLANNING STRATEGIST) TYPE 16 Negative Negative 12/03/2023 1:43 PM EXPERIENCE PLANNING STRATEGIST [facility] TYPE 18 Negative Negative 12/03/2023 1:43 PM EXPERIENCE PLANNING STRATEGIST [facility] TRAL [facility] OTHER HIGH RISK TYPES Negative Negative 12/03/2023 1:43 PM EXPERIENCE PLANNING STRATEGIST [facility] Other (Cervical) Non-Blood / Unknown 11/28/2023 1:45 PM EXPERIENCE PLANNING STRATEGIST 12/01/2023 12:49 PM EXPERIENCE PLANNING STRATEGIST Narrative [facility] - 12/03/2023 1:43 PM EXPERIENCE PLANNING STRATEGIST HPV types 16, 18, 31, 33, 35, 39, 45, 51, 52, 56, 58, 59, 66 and 68 DNA were undetectable or below the pre-set threshold. Methodology: Ayden [employer] 4800 HPV Test Shanon Pruett MD MICROBIOLOGY [facility] [address] [place] [address], from Last 3 Months Care Teams Hogshead Liner Relationship Specialty Start Date End Date Shanon Pruett MD [address] [place] [phone] PCP - General Family Practice 10/25/10
[2024-02-15 22:13] LABS: Appearance Urine Clear (Clear); Bilirubin Urine Negative (Negative); Blood Urine Negative (Negative); Color Urine Yellow (Yellow); Glucose Urine Negative (Negative); Ketones Urine Negative (Negative); Leukocyte Esterase Urine Negative (Negative); Nitrite Urine Negative (Negative); Protein Urine Negative (Negative); Specific Gravity Urine <= 1.005 (1.000-1.030); Urobilinogen Urine 0.2 (0.2-1.0); pH Urine 5.5 (5.0-8.5)
[2024-02-15 22:19] LABS: RBC Urine 0-2 (0-2); Squamous Epithelial Cell Urine Few (None-Few); WBC Urine 0-2 (0-5)
[2024-02-16 00:02] VITALS: BP 125/68; PULSE 74; RESP 18; TEMP 36.9; O2SAT 99
--- NOTE | 2024-02-16 00:03 | PC.NURSE ---
Written and verbal D/C per MD and RN. Pt acknowledges instructions. MD has also provided exercises. Pt able to ambulate out without diff. Able to get insty meds steroids as ordered.
== END 2024-02-16 00:14 | disposition home or self-care (01) ==
PROVIDERS: Emergency Provider Family Medicine; PCP Internal Medicine
DX: M54.50 Low back pain, unspecified (principal); M62.830 Muscle spasm of back
CPT/HCPCS: 81001; 99283; 99284; A9270

== ENCOUNTER 2025-05-31 15:26 | Outpatient (REF) | payer OTHER, SELFPAY ==
--- OUTSIDE RECORDS SUMMARY | 2025-05-04 06:54 | XMS_ITS | Encounter Summary ---
Author Organization [facility] Address [address] [place] [id number] Care Team Providers Care Referral Manager Name Role Phone No Ref-Primary, Physician Primary Care Provider Encounter Details Date Type Department Care Team (Latest Contact Info) Description 05/04/2025 6:54 AM CDT - 05/04/2025 9:15 AM CDT Hospital Encounter [facility] [place] [address] [place] [address] Patria Mcadams MD [facility] [address] [place], [place] [id number] Discharge Disposition: Home or Self Care Social History Tobacco Use Types Packs/Day Years Used Date Smoking Tobacco: Never Smokeless Tobacco: Never Tobacco Cessation:Counseling Given: Not Answered Alcohol Use Standard Drinks/Week Comments Not Currently 0 (1 standard drink = 0.6 oz pur e alcohol) Comments Unknown Sex and Gender Information Value Date Recorded Sex Assigned at Not on file Legal Sex Female 3:06 PM CDT Gender Identity Not on file Sexual Orientation Not on file documented as of this encounter Last Filed Vital Signs Vital Sign Reading Time Taken Comments Blood Pressure 118/70 05/04/2025 9:05 AM CDT Pulse 57 05/04/2025 9:05 AM CDT Temperature 36.5 C (97.7 F) 05/04/2025 8:00 AM CDT Respiratory Rate 16 05/04/2025 9:05 AM CDT Oxygen Saturation 98% 05/04/2025 9:05 AM CDT Inhaled Oxygen Concentration - - Weight 81.6 kg (180 lb) 05/04/2025 7:34 AM CDT Height - - Body Mass Index - - documented in this encounter Discharge Instructions * Discharge Instructions* Skye Anthony RN - 05/04/2025 8:42 AM CDT The patient has received a copy of the Provation report the doctor has written and discharge instructions have been discussed with the patient and responsible adult. All questions were addressed and answered prior to patient discharge. * Attachments The following attachments cannot be sent through Care Everywhere. * Colon Polyps (Ugandan) * Hemorrhoids (Ugandan) documented in this encounter Procedure Notes * Patria Mcadams MD - 05/04/2025 8:05 AM CDT PRE-PROCEDURE H&P CHIEF COMPLAINT / REASON FOR PROCEDURE: screening PERTINENT HISTORY : History reviewed. No pertinent past medical history. Past Surgical History: Procedure Laterality Date COLONOSCOPY Bleeding tendencies: No Relevant Family History: NONE Relevant Social History: NONE A relevant review of systems was performed and was negative ALLERGIES/SENSITIVITIES: Allergies Allergen Reactions Penicillin G GI Disturbance CURRENT MEDICATIONS: No current outpatient medications on file. PRE-SEDATION ASSESSMENT: Lung Exam: normal Heart Exam: normal Airway Exam: normal Previous reaction to anesthesia/sedation: No Sedation plan based on assessment: Moderate (conscious) sedation ASA Classification: 1 - Healthy patient, no medical problems IMPRESSION: screening PLAN: colonoscopy Patria Mcadams MD [facility] Office: [phone] documented in this encounter Plan of Treatment Not on file documented as of this encounter Procedures Procedure Name Priority Date/Time Associated Diagnosis Comments SURGICAL PATHOLOGY EXAM Routine 05/04/2025 8:23 AM CDT COLONOSCOPY W SNARE REMOVAL TUMOR/POLYP/LESION 05/04/2025 7:55 AM CDT Abdominal pain Special Needs Free Screening Colonoscopy Patient COLONOSCOPY Routine 05/04/2025 7:44 AM CDT documented in this encounter Results * Surgical Pathology Exam (05/04/2025 8:23 AM CDT) Case Report Surgical Pathology Report Case: [id number] Authorizing Provider: Patria Mcadams MD Collected: 05/04/2025 08:23 AM Ordering Location: [facility] Received: 05/04/2025 08:50 AM [facility] [place] Pathologist: Eh Ryder MD Specimens: A) - Large Intestine, Colon, Cecum, cecal polyp x1 B) - Large Intestine, Colon, Ascending, Ascending polyp x1 05/05/2025 10:12 AM CDT LABORATORY Final Diagnosis A. Colon, cecum, polypectomy: -- Hyperplastic polyp. B. Colon, ascending, polypectomy: -- Nondysplastic colonic mucosa without diagnostic abnormality. 05/05/2025 10:12 AM T LABORATORY at 1012 CDT Clinical Information Procedure: Colonoscopy, Screening with polypectomies using exacto cold snare Pre-op Diagnosis: Abdominal pain [R10.9] Post-op Diagnosis: R10.9 - Abdominal pain [ICD-10-CM] 05/05/2025 10:12 AM CDT LABORATORY Gross Description A(1). Large Intestine, Colon, Cecum, cecal polyp x1: The specimen is received in formalin, labeled with the patient's name, medical record number and other identifying information designated cecal polyp x 1. It consists of a 1.3 cm aggregate of montano-pink, shaggy soft tissue fragments, 0.1-0.5 cm. Wrapped and submitted entirely in 1 cassette. B(2). Large Intestine, Colon, Ascending, Ascending polyp x1: The specimen is received in formalin, labeled with the patient's name, medical record number and other identifying information designated ascending polyp x 1. It consists of a 1.2 cm aggregate of montano-pink, shaggy soft tissue fragments, 0.2-1.0 cm. The largest fragment is inked black and sectioned. Submitted entirely in 1 cassette. (MAXINE Caballero)05/04/2025 9:54 AM 05/05/2025 10:12 AM CDT LABORATORY Microscopic Description Microscopic examination was performed. 05/05/2025 10:12 AM [facility] Performing Labs The technical component of this testing was completed at [facility]. Stain controls for all stains resulted within this report have been reviewed and show appropriate reactivity. 05/05/2025 10:12 AM CDT LABORATORY Case Images 05/05/2025 10:12 AM CDT LABORATORY Polyp CECUM STRUCTURE / Unknown 05/04/2025 8:23 AM CDT 05/04/2025 8:50 AM CDT Polyp (morphologic abnormality) ASCENDING COLON STRUCTURE / Unknown 05/04/2025 8:25 AM CDT 05/04/2025 8:50 AM CDT us Patria Mcadams MD LAB - HIEN AP Final Res ult [facility] [address] [facility] (1st floor, no room number) [place] [address], [facility] * COLONOSCOPY (05/04/2025 7:44 AM CDT) COLONOSCOPY [facility] Patient Name: Angelica Gross Mckenzie Procedure Date: 05/04/2025 7:44 AM Date of : 1970 Admit Type: Outpatient Age: 54 Gender: Female Attending MD: PATRIA MCADAMS MD, Total Sedation Time: __23___ minutes of continuous bedside 1:1 Instrument Name: 257 - Pediatric Colonoscope Procedure: Colonoscopy Indications: Screening for colorectal malignant neoplasm Providers: PATRIA MCADAMS MD (Doctor) Referring MD: Medicines: Midazolam 1.5 mg IV, Fentanyl 50 micrograms IV Complications: No immediate complications. Procedure: Pre-Anesthesia Assessment: - Prior to the procedure, a History and Physical was performed, and patient medications and allergies were reviewed. The patient is competent. The risks and benefits of the procedure and the sedation options and risks were discussed with the patient. All questions were answered and informed consent was obtained. Patient identification and proposed procedure were verified by the physician and the nurse in the procedure room. Mental Status Examination: alert and oriented. Airway Examination: normal oropharyngeal airway and neck mobility. Respiratory Examination: clear to auscultation. CV Examination: normal. ASA Grade Assessment: I - A normal, healthy patient. After reviewing the risks and benefits, the patient was deemed in satisfactory condition to undergo the procedure. The anesthesia plan was to use moderate sedation / analgesia (conscious sedation). Immediately prior to administration of medications, the patient was re-assessed for adequacy to receive sedatives. The heart rate, respiratory rate, oxygen saturations, blood pressure, adequacy of pulmonary ventilation, and response to care were monitored throughout the procedure. The physical status of the patient was re-assessed after the procedure. After obtaining informed consent, the colonoscope was passed under direct vision. Throughout the procedure, the patient's blood pressure, pulse, and oxygen saturations were monitored continuously. The Olympus Pediatric Colonoscope Model # [id number]-YI167C, Censitrac # [id number] was introduced through the anus and advanced to the cecum, identified by appendiceal orifice and ileocecal valve. The colonoscopy was performed without difficulty. The patient tolerated the procedure well. The quality of the bowel preparation was excellent. Findings: A 2 mm polyp was found in the cecum. The polyp was sessile. The polyp was removed with a cold snare. Resection and retrieval were complete. A 1 mm polyp was found in the ascending colon. The polyp was sessile. The polyp was removed with a cold snare. Resection and retrieval were complete. Internal hemorrhoids were found during retroflexion. The hemorrhoids were small. The perianal and digital rectal examinations were normal. Impression: - One 2 mm polyp in the cecum, removed with a cold snare. Resected and retrieved. - One 1 mm polyp in the ascending colon, removed with a cold snare. Resected and retrieved. - Internal hemorrhoids. Recommendation: - Await pathology results. Procedure Code(s): --- Professional --- 46017, Colonoscopy, flexible; with removal of tumor(s), polyp(s), or other lesion(s) by snare technique CPT copyright 2021 [employer]. All rights reserved. The codes documented in this report are preliminary and upon pipe coverer review may be revised to meet current compliance requirements. Electronically signed by Shelia Mcadams M.D. PATRIA MCADAMS MD 05/04/2025 8:40:04 AM I was physically present for the entire viewing portion of the exam. PATRIA MCADAMS MD Number of Addenda: 0 Note Initiated On: 05/04/2025 7:44 AM Procedure Date: 05/04/2025 7:44:36 AM Scope Withdrawal Time: 0 hours 12 minutes 45 seconds Total Procedure Duration: 0 hours 20 minutes 15 seconds Estimated Blood Loss: Scope In: 8:12:21 AM Scope Out: 8:32:36 AM RADIOLOGY RESULTS 05/04/2025 7:44 AM CDT us Patria Mcadams MD PROCEDURES Final Res ult RADIOLOGY RESULTS documented in this encounter Visit Diagnoses Not on filedocumented in this encounter Administered Medications Inactive Administered Medications - up to 3 most recent administrations Medication Order MAR Action Action Date Dose Rate Site atropine injection 1 mg 1 mg, Intravenous, ONCE PRN, other, Bradycardia, Starting on Fri05/04/25 at 0802, For 1 dose, Intra-procedure benzocaine 20% (HURRICAINE/TOPEX) 20 % spray 0.5 mL 0.5 mL (1 spray), Mouth/Throat, ONCE PRN, sore throat, Starting on Fri05/04/25 at 0802, For 1 dose, [place] throat with 1 spray 5 minutes prior to procedure., Intra-procedure diphenhydrAMINE (BENADRYL) injection 25-50 mg 25-50 mg, Intravenous, ONCE PRN, other, for sedations, dose per provider direction., Administer over 1-2 Minutes, Starting on Fri05/04/25 at 0802, For 1 dose, Intra-procedure EPINEPHrine PF (ADRENALIN) injection 0.1 mg 0.1 mg, Submucosal, ONCE PRN, bleeding, Starting on Fri05/04/25 at 0802, For 1 dose, RN to dilute 1 mL (1 mg) of EPINEPHrine with 9 mL of 0.9% sodium chloride to equal a 0.1 mg/mL concentration. Inject 1 mL (0.1 mg) into submucosa via a sclerotherapy injection needle. Not for direct undiluted intravenous injection. (1 mg/mL = 1:1,000 concentration), Intra-procedure fentaNYL (PF) (SUBLIMAZE) injection 25-100 mcg 25-100 mcg, Intravenous, EVERY 5 MIN PRN, severe pain, If inadequate response may repeat every 3 min PRN severe pain; when verbally requested by provider., Starting on Fri05/04/25 at 0802, Doses can be exceeded under direct oversight of patient by physician., Intra-procedure $Given 05/04/2025 8:09 AM CDT 50 mcg flumazenil (ROMAZICON) injection 0.2 mg 0.2 mg, Intravenous, EVERY 1 MIN PRN, benzodiazepine reversal, If inadequate response after 45 seconds, may repeat 0.2 mg IV every 1 minute PRN over sedation., Administer over 1 Minutes, Starting on Fri05/04/25 at 0802, Give over 15 seconds. Maximum total dose of 1 mg. Continue monitoring until discharge criteria met for a minimum of 2 hours. Use with caution in patients on benzodiazepine therapy., Intra-procedure flumazenil (ROMAZICON) injection 0.2 mg 0.2 mg, Intravenous, EVERY 1 MIN PRN, benzodiazepine reversal, over sedation, Administer over 1 Minutes, Starting on Fri05/04/25 at 0842, For 12 hours, Give over 15 seconds. If inadequate response after 45 seconds, may repeat up to a MAX total dose of 1 mg. Continue monitoring until discharge criteria are met for a minimum of 2 hours Use with caution in patients on benzodiazepine therapy. glucagon injection 0.5 mg 0.5 mg, Intravenous, ONCE PRN, other, gi motility, Starting on Fri05/04/25 at 0802, For 1 dose, Intra-procedure lidocaine (LMX4) cream Topical, EVERY 1 HOUR PRN, pain, with VAD insertion, Starting on Fri05/04/25 at 0803, Apply at least 30 minutes prior to VAD insertion in divided doses as needed for size of site for insertion. MAX Dose: 2.5 g ( of 5 g tube) Do NOT give if patient has a history of allergy to any local anesthetic or any josé luis product. Do NOT use both lidocaine intradermal/subcutaneous injection and the lidocaine cream on the same site., Pre-procedure lidocaine 1 % 0.1-1 mL 0.1-1 mL, Other, EVERY 1 HOUR PRN, mild pain with VAD insertion, Starting on Fri05/04/25 at 0803, MAX dose 1 mL subcutaneous OR intradermal along the side of the vein in divided doses as needed for VAD insertion. Do NOT give if patient has a history of allergy to any local anesthetic or any josé luis product. Do NOT use both lidocaine intradermal/subcutaneous injection and the lidocaine cream on the same site., Pre-procedure midazolam (VERSED) injection 0.5-2 mg 0.5-2 mg, Intravenous, EVERY 4 MIN PRN, sedation, If inadequate response may repeat every 4 minutes PRN sedation until desired response; when verbally requested by provider., Starting on Fri05/04/25 at 0802, Doses can be exceeded under direct oversight of patient by physician. This drug may cause significant respiratory depression. Monitor respiratory status and vital signs carefully for 1 hour after each dose., Intra-procedure $Given 05/04/2025 8:12 AM CDT 0.5 mg $Given 05/04/2025 8:09 AM CDT 1 mg naloxone (NARCAN) injection 0.2 mg 0.2 mg, Intravenous, EVERY 2 MIN PRN, opioid reversal, Starting on Fri05/04/25 at 0802, Administer intravenous route when available and notify provider when administered. For unintended sedation or respiratory depression if all of the below criteria are met: ~ respiratory rate LESS than or EQUAL to 8. ~SaO2 less than 92% and or/end-tidal CO2 is greater than 50. ~ the patient is receiving an opioid, has unintended sedations assessed as RASS (-3), and is currently not on mechanical ventilation. RASS scale moderate (-3) is movement or eye opening to voice but no eye contact. Patient Monitoring Once the patient has demonstrated a response to the naloxone, continue to monitor respiratory rate, depth, oxygen saturation and end-tidal CO2 (if available) every 15 minutes x 2, then every 30 minutes x 2, then every 1 hour x 1 after each naloxone dose. Consider transfer to ICU if patient respiratory parameters have not improved after 4 naloxone doses., Intra-procedure naloxone (NARCAN) injection 0.2 mg 0.2 mg, Intramuscular, EVERY 2 MIN PRN, opioid reversal, Starting on Fri05/04/25 at 0802, Administer intramuscular if an intravenous route is not available and notify provider when administered. For unintended sedation or respiratory depression if all of the below criteria are met: ~ respiratory rate LESS than or EQUAL to 8. ~SaO2 less than 92% and or/end-tidal CO2 is greater than 50. ~ the patient is receiving an opioid, has unintended sedations assessed as RASS (-3), and is currently not on mechanical ventilation. RASS scale moderate (-3) is movement or eye opening to voice but no eye contact. Patient Monitoring Once the patient has demonstrated a response to the naloxone, continue to monitor respiratory rate, depth, oxygen saturation and end-tidal CO2 (if available) every 15 minutes x 2, then every 30 minutes x 2, then every 1 hour x 1 after each naloxone dose. Consider transfer to ICU if patient respiratory parameters have not improved after 4 naloxone doses., Intra-procedure naloxone (NARCAN) injection 0.2 mg 0.2 mg, Intravenous, EVERY 2 MIN PRN, opioid reversal, Starting on Fri05/04/25 at 0842, Administer intravenous route when available and notify provider when administered. For unintended sedation or respiratory depression if all of the below criteria are met: ~ respiratory rate LESS than or EQUAL to 8. ~SaO2 less than 92% and or/end-tidal CO2 is greater than 50. ~ the patient is receiving an opioid, has unintended sedations assessed as RASS (-3), and is currently not on mechanical ventilation. RASS scale moderate (-3) is movement or eye opening to voice but no eye contact. Patient Monitoring Once the patient has demonstrated a response to the naloxone, continue to monitor respiratory rate, depth, oxygen saturation and end-tidal CO2 (if available) every 15 minutes x 2, then every 30 minutes x 2, then every 1 hour x 1 after each naloxone dose. Consider transfer to ICU if patient respiratory parameters have not improved after 4 naloxone doses. naloxone (NARCAN) injection 0.2 mg 0.2 mg, Intramuscular, EVERY 2 MIN PRN, opioid reversal, Starting on Fri05/04/25 at 0842, Administer intramuscular if an intravenous route is not available and notify provider when administered. For unintended sedation or respiratory depression if all of the below criteria are met: ~ respiratory rate LESS than or EQUAL to 8. ~SaO2 less than 92% and or/end-tidal CO2 is greater than 50. ~ the patient is receiving an opioid, has unintended sedations assessed as RASS (-3), and is currently not on mechanical ventilation. RASS scale moderate (-3) is movement or eye opening to voice but no eye contact. Patient Monitoring Once the patient has demonstrated a response to the naloxone, continue to monitor respiratory rate, depth, oxygen saturation and end-tidal CO2 (if available) every 15 minutes x 2, then every 30 minutes x 2, then every 1 hour x 1 after each naloxone dose. Consider transfer to ICU if patient respiratory parameters have not improved after 4 naloxone doses. naloxone (NARCAN) injection 0.4 mg 0.4 mg, Intravenous, EVERY 2 MIN PRN, opioid reversal, Starting on Fri05/04/25 at 0802, Administer intravenous route when available and notify provider when administered. For unintended sedation or respiratory depression if all of the below criteria are met: ~ respiratory rate LESS than or EQUAL to 8. ~ SaO2 less than 92% and or/end-tidal CO2 is greater than 50. ~ the patient is receiving an opioid, has unintended sedation assessed as RASS (-4) or (-5) and patient is currently not on mechanical ventilation. RASS scale (-4) is deep sedation with no response to voice but movement or eye opening to physical stimulation. RASS scale (-5) is unarousable. Patient Monitoring Once the patient has demonstrated a response to the naloxone, continue to monitor respiratory rate, depth, oxygen saturation and end-tidal CO2 (if available) every 15 minutes x 2, then every 30 minutes x 2, then every 1 hour x 1 after each naloxone dose. Consider transfer to ICU if patient respiratory parameters have not improved after 4 naloxone doses., Intra-procedure naloxone (NARCAN) injection 0.4 mg 0.4 mg, Intramuscular, EVERY 2 MIN PRN, opioid reversal, Starting on Fri05/04/25 at 0802, Administer intramuscular if an intravenous route is not available and notify provider when administered. For unintended sedation or respiratory depression if all of the below criteria are met: ~ respiratory rate LESS than or EQUAL to 8. ~ SaO2 less than 92% and or/end-tidal CO2 is greater than 50. ~ the patient is receiving an opioid, has unintended sedation assessed as RASS (-4) or (-5) and patient is currently not on mechanical ventilation. RASS scale (-4) is deep sedation with no response to voice but movement or eye opening to physical stimulation. RASS scale (-5) is unarousable. Patient Monitoring Once the patient has demonstrated a response to the naloxone, continue to monitor respiratory rate, depth, oxygen saturation and end-tidal CO2 (if available) every 15 minutes x 2, then every 30 minutes x 2, then every 1 hour x 1 after each naloxone dose. Consider transfer to ICU if patient respiratory parameters have not improved after 4 naloxone doses., Intra-procedure naloxone (NARCAN) injection 0.4 mg 0.4 mg, Intravenous, EVERY 2 MIN PRN, opioid reversal, Starting on Fri05/04/25 at 0842, Administer intravenous route when available and notify provider when administered. For unintended sedation or respiratory depression if all of the below criteria are met: ~ respiratory rate LESS than or EQUAL to 8. ~ SaO2 less than 92% and or/end-tidal CO2 is greater than 50. ~ the patient is receiving an opioid, has unintended sedation assessed as RASS (-4) or (-5) and patient is currently not on mechanical ventilation. RASS scale (-4) is deep sedation with no response to voice but movement or eye opening to physical stimulation. RASS scale (-5) is unarousable. Patient Monitoring Once the patient has demonstrated a response to the naloxone, continue to monitor respiratory rate, depth, oxygen saturation and end-tidal CO2 (if available) every 15 minutes x 2, then every 30 minutes x 2, then every 1 hour x 1 after each naloxone dose. Consider transfer to ICU if patient respiratory parameters have not improved after 4 naloxone doses. naloxone (NARCAN) injection 0.4 mg 0.4 mg, Intramuscular, EVERY 2 MIN PRN, opioid reversal, Starting on Fri05/04/25 at 0842, Administer intramuscular if an intravenous route is not available and notify provider when administered. For unintended sedation or respiratory depression if all of the below criteria are met: ~ respiratory rate LESS than or EQUAL to 8. ~ SaO2 less than 92% and or/end-tidal CO2 is greater than 50. ~ the patient is receiving an opioid, has unintended sedation assessed as RASS (-4) or (-5) and patient is currently not on mechanical ventilation. RASS scale (-4) is deep sedation with no response to voice but movement or eye opening to physical stimulation. RASS scale (-5) is unarousable. Patient Monitoring Once the patient has demonstrated a response to the naloxone, continue to monitor respiratory rate, depth, oxygen saturation and end-tidal CO2 (if available) every 15 minutes x 2, then every 30 minutes x 2, then every 1 hour x 1 after each naloxone dose. Consider transfer to ICU if patient respiratory parameters have not improved after 4 naloxone doses. ondansetron (ZOFRAN ODT) ODT tab 4 mg 4 mg, Oral, EVERY 6 HOURS PRN, nausea/vomiting - 1st line, Starting on Fri05/04/25 at 0842, This is Step 1 of nausea and vomiting management. If nausea not resolved in 15 minutes, go to Step 2 prochlorperazine (COMPAZINE). With dry hands, peel back foil backing and gently remove tablet. Do not push oral disintegrating tablet through foil backing. Administer immediately on tongue and oral disintegrating tablet dissolves in seconds, then swallow with saliva. Liquid not required. ondansetron (ZOFRAN) injection 4 mg 4 mg, Intravenous, ONCE PRN, nausea/vomiting - 1st line, Administer over 2-5 Minutes, Starting on Fri05/04/25 at 0803, For 1 dose, Give in ENDO pre procedure prep area., Pre-procedure ondansetron (ZOFRAN) injection 4 mg 4 mg, Intravenous, EVERY 6 HOURS PRN, nausea/vomiting - 1st line, Administer over 2-5 Minutes, Starting on Fri05/04/25 at 0842, Give IF patient unable to tolerate oral medication. This is Step 1 of nausea and vomiting management. If nausea not resolved in 15 minutes, go to Step 2 prochlorperazine (COMPAZINE). prochlorperazine (COMPAZINE) injection 10 mg 10 mg, Intravenous, EVERY 6 HOURS PRN, nausea/vomiting - 2nd line, Administer over 1-2 Minutes, Starting on Fri05/04/25 at 0842, Give IF patient unable to tolerate oral medication. This is Step 2 of nausea and vomiting management. Give if nausea not resolved 15 minutes after giving ondansetron (ZOFRAN). If nausea not resolved in 15-30 minutes, Notify provider. prochlorperazine (COMPAZINE) tablet 10 mg 10 mg, Oral, EVERY 6 HOURS PRN, nausea/vomiting - 2nd line, Starting on Fri05/04/25 at 0842, This is Step 2 of nausea and vomiting management. Give if nausea not resolved 15 minutes after giving ondansetron (ZOFRAN). If nausea not resolved in 15-30 minutes, Notify provider. simethicone (MYLICON) suspension 133 mg 133 mg, Oral, ONCE PRN, other, gas bubbles, Starting on Fri05/04/25 at 0802, For 1 dose, Give via endoscope, Intra-procedure sodium chloride (PF) 0.9% PF flush 3 mL 3 mL, Intracatheter, EVERY 8 HOURS SCHEDULED, First dose on Fri05/04/25 at 1400, to lock peripheral IV dormant line, Pre-procedure sodium chloride (PF) 0.9% PF flush 3 mL 3 mL, Intracatheter, EVERY 1 MIN PRN, line flush, other, to ensure patency or to lock dormant line, Starting on Fri05/04/25 at 0803, Pre-procedure $Given 05/04/2025 8:12 AM CDT 3 mLs $Given 05/04/2025 8:09 AM CDT 3 mLs sodium chloride (PF) 0.9% PF flush 3 mL 3 mL, Intravenous, EVERY 1 MIN PRN, line flush, Starting on Fri05/04/25 at 0802, Indications: for Peripheral IV flush post IV meds, Intra-procedureIndications:for Peripheral IV flush post IV meds sodium chloride 0.9 % infusion Intravenous, CONTINUOUS PRN, Intra-procedure, Starting on Fri05/04/25 at 0739, Until Fri05/04/25 at 0948 Rate/Dose Verify 05/04/2025 8:04 AM CDT $New Bag 05/04/2025 7:39 AM CDT 125 mL/hr 125 mL/hr sodium chloride 0.9% BOLUS 500 mL Intravenous, 500 mL, ONCE PRN, at 500 mL/hr, Administer over 1 Hours, other, hypotension, Starting on Fri05/04/25 at 0802, For 1 dose, Intra-procedure documented in this encounter Active and Recently Administered Medications Times are shown in CDT. Scheduled Medication Order 05/02/2025 05/03/2025 05/04/2025 sodium chloride (PF) 0.9% PF flush 3 mL 3 mL, Intracatheter, EVERY 8 HOURS SCHEDULED, First dose on Fri05/04/25 at 1400, to lock peripheral IV dormant line, Pre-procedure PRN Medication Order 05/02/2025 05/03/2025 05/04/2025 atropine injection 1 mg 1 mg, Intravenous, ONCE PRN, other, Bradycardia, Starting on Fri05/04/25 at 0802, For 1 dose, Intra-procedure benzocaine 20% (HURRICAINE/TOPEX) 20 % spray 0.5 mL 0.5 mL (1 spray), Mouth/Throat, ONCE PRN, sore throat, Starting on Fri05/04/25 at 0802, For 1 dose, [place] throat with 1 spray 5 minutes prior to procedure., Intra-procedure diphenhydrAMINE (BENADRYL) injection 25-50 mg 25-50 mg, Intravenous, ONCE PRN, other, for sedations, dose per provider direction., Administer over 1-2 Minutes, Starting on Fri05/04/25 at 0802, For 1 dose, Intra-procedure EPINEPHrine PF (ADRENALIN) injection 0.1 mg 0.1 mg, Submucosal, ONCE PRN, bleeding, Starting on Fri05/04/25 at 0802, For 1 dose, RN to dilute 1 mL (1 mg) of EPINEPHrine with 9 mL of 0.9% sodium chloride to equal a 0.1 mg/mL concentration. Inject 1 mL (0.1 mg) into submucosa via a sclerotherapy injection needle. Not for direct undiluted intravenous injection. (1 mg/mL = 1:1,000 concentration), Intra-procedure fentaNYL (PF) (SUBLIMAZE) injection 25-100 mcg 25-100 mcg, Intravenous, EVERY 5 MIN PRN, severe pain, If inadequate response may repeat every 3 min PRN severe pain; when verbally requested by provider., Starting on Fri05/04/25 at 0802, Doses can be exceeded under direct oversight of patient by physician., Intra-procedure 808 ($Given - Provi babatunde: Benita Alfaro RN) flumazenil (ROMAZICON) injection 0.2 mg 0.2 mg, Intravenous, EVERY 1 MIN PRN, benzodiazepine reversal, If inadequate response after 45 seconds, may repeat 0.2 mg IV every 1 minute PRN over sedation., Administer over 1 Minutes, Starting on Fri05/04/25 at 0802, Give over 15 seconds. Maximum total dose of 1 mg. Continue monitoring until discharge criteria met for a minimum of 2 hours. Use with caution in patients on benzodiazepine therapy., Intra-procedure flumazenil (ROMAZICON) injection 0.2 mg 0.2 mg, Intravenous, EVERY 1 MIN PRN, benzodiazepine reversal, over sedation, Administer over 1 Minutes, Starting on Fri05/04/25 at 0842, For 12 hours, Give over 15 seconds. If inadequate response after 45 seconds, may repeat up to a MAX total dose of 1 mg. Continue monitoring until discharge criteria are met for a minimum of 2 hours Use with caution in patients on benzodiazepine therapy. glucagon injection 0.5 mg 0.5 mg, Intravenous, ONCE PRN, other, gi motility, Starting on Fri05/04/25 at 0802, For 1 dose, Intra-procedure lidocaine (LMX4) cream Topical, EVERY 1 HOUR PRN, pain, with VAD insertion, Starting on Fri05/04/25 at 0803, Apply at least 30 minutes prior to VAD insertion in divided doses as needed for size of site for insertion. MAX Dose: 2.5 g ( of 5 g tube) Do NOT give if patient has a history of allergy to any local anesthetic or any josé luis product. Do NOT use both lidocaine intradermal/subcutaneous injection and the lidocaine cream on the same site., Pre-procedure lidocaine 1 % 0.1-1 mL 0.1-1 mL, Other, EVERY 1 HOUR PRN, mild pain with VAD insertion, Starting on Fri05/04/25 at 0803, MAX dose 1 mL subcutaneous OR intradermal along the side of the vein in divided doses as needed for VAD insertion. Do NOT give if patient has a history of allergy to any local anesthetic or any josé luis product. Do NOT use both lidocaine intradermal/subcutaneous injection and the lidocaine cream on the same site., Pre-procedure midazolam (VERSED) injection 0.5-2 mg 0.5-2 mg, Intravenous, EVERY 4 MIN PRN, sedation, If inadequate response may repeat every 4 minutes PRN sedation until desired response; when verbally requested by provider., Starting on Fri05/04/25 at 0802, Doses can be exceeded under direct oversight of patient by physician. This drug may cause significant respiratory depression. Monitor respiratory status and vital signs carefully for 1 hour after each dose., Intra-procedure 08 ($Given - Provi babatunde: Benita Alfaro RN)0812 ($Given - Provider: Benita Alfaro RN) naloxone (NARCAN) injection 0.2 mg(Linked Group 1) 0.2 mg, Intravenous, EVERY 2 MIN PRN, opioid reversal, Starting on Fri05/04/25 at 0802, Administer intravenous route when available and notify provider when administered. For unintended sedation or respiratory depression if all of the below criteria are met: ~ respiratory rate LESS than or EQUAL to 8. ~SaO2 less than 92% and or/end-tidal CO2 is greater than 50. ~ the patient is receiving an opioid, has unintended sedations assessed as RASS (-3), and is currently not on mechanical ventilation. RASS scale moderate (-3) is movement or eye opening to voice but no eye contact. Patient Monitoring Once the patient has demonstrated a response to the naloxone, continue to monitor respiratory rate, depth, oxygen saturation and end-tidal CO2 (if available) every 15 minutes x 2, then every 30 minutes x 2, then every 1 hour x 1 after each naloxone dose. Consider transfer to ICU if patient respiratory parameters have not improved after 4 naloxone doses., Intra-procedure naloxone (NARCAN) injection 0.2 mg(Linked Group 1) 0.2 mg, Intramuscular, EVERY 2 MIN PRN, opioid reversal, Starting on Fri05/04/25 at 0802, Administer intramuscular if an intravenous route is not available and notify provider when administered. For unintended sedation or respiratory depression if all of the below criteria are met: ~ respiratory rate LESS than or EQUAL to 8. ~SaO2 less than 92% and or/end-tidal CO2 is greater than 50. ~ the patient is receiving an opioid, has unintended sedations assessed as RASS (-3), and is currently not on mechanical ventilation. RASS scale moderate (-3) is movement or eye opening to voice but no eye contact. Patient Monitoring Once the patient has demonstrated a response to the naloxone, continue to monitor respiratory rate, depth, oxygen saturation and end-tidal CO2 (if available) every 15 minutes x 2, then every 30 minutes x 2, then every 1 hour x 1 after each naloxone dose. Consider transfer to ICU if patient respiratory parameters have not improved after 4 naloxone doses., Intra-procedure naloxone (NARCAN) injection 0.2 mg 0.2 mg, Intravenous, EVERY 2 MIN PRN, opioid reversal, Starting on Fri05/04/25 at 0842, Administer intravenous route when available and notify provider when administered. For unintended sedation or respiratory depression if all of the below criteria are met: ~ respiratory rate LESS than or EQUAL to 8. ~SaO2 less than 92% and or/end-tidal CO2 is greater than 50. ~ the patient is receiving an opioid, has unintended sedations assessed as RASS (-3), and is currently not on mechanical ventilation. RASS scale moderate (-3) is movement or eye opening to voice but no eye contact. Patient Monitoring Once the patient has demonstrated a response to the naloxone, continue to monitor respiratory rate, depth, oxygen saturation and end-tidal CO2 (if available) every 15 minutes x 2, then every 30 minutes x 2, then every 1 hour x 1 after each naloxone dose. Consider transfer to ICU if patient respiratory parameters have not improved after 4 naloxone doses. naloxone (NARCAN) injection 0.2 mg 0.2 mg, Intramuscular, EVERY 2 MIN PRN, opioid reversal, Starting on Fri05/04/25 at 0842, Administer intramuscular if an intravenous route is not available and notify provider when administered. For unintended sedation or respiratory depression if all of the below criteria are met: ~ respiratory rate LESS than or EQUAL to 8. ~SaO2 less than 92% and or/end-tidal CO2 is greater than 50. ~ the patient is receiving an opioid, has unintended sedations assessed as RASS (-3), and is currently not on mechanical ventilation. RASS scale moderate (-3) is movement or eye opening to voice but no eye contact. Patient Monitoring Once the patient has demonstrated a response to the naloxone, continue to monitor respiratory rate, depth, oxygen saturation and end-tidal CO2 (if available) every 15 minutes x 2, then every 30 minutes x 2, then every 1 hour x 1 after each naloxone dose. Consider transfer to ICU if patient respiratory parameters have not improved after 4 naloxone doses. naloxone (NARCAN) injection 0.4 mg(Linked Group 1) 0.4 mg, Intravenous, EVERY 2 MIN PRN, opioid reversal, Starting on Fri05/04/25 at 0802, Administer intravenous route when available and notify provider when administered. For unintended sedation or respiratory depression if all of the below criteria are met: ~ respiratory rate LESS than or EQUAL to 8. ~ SaO2 less than 92% and or/end-tidal CO2 is greater than 50. ~ the patient is receiving an opioid, has unintended sedation assessed as RASS (-4) or (-5) and patient is currently not on mechanical ventilation. RASS scale (-4) is deep sedation with no response to voice but movement or eye opening to physical stimulation. RASS scale (-5) is unarousable. Patient Monitoring Once the patient has demonstrated a response to the naloxone, continue to monitor respiratory rate, depth, oxygen saturation and end-tidal CO2 (if available) every 15 minutes x 2, then every 30 minutes x 2, then every 1 hour x 1 after each naloxone dose. Consider transfer to ICU if patient respiratory parameters have not improved after 4 naloxone doses., Intra-procedure naloxone (NARCAN) injection 0.4 mg(Linked Group 1) 0.4 mg, Intramuscular, EVERY 2 MIN PRN, opioid reversal, Starting on Fri05/04/25 at 0802, Administer intramuscular if an intravenous route is not available and notify provider when administered. For unintended sedation or respiratory depression if all of the below criteria are met: ~ respiratory rate LESS than or EQUAL to 8. ~ SaO2 less than 92% and or/end-tidal CO2 is greater than 50. ~ the patient is receiving an opioid, has unintended sedation assessed as RASS (-4) or (-5) and patient is currently not on mechanical ventilation. RASS scale (-4) is deep sedation with no response to voice but movement or eye opening to physical stimulation. RASS scale (-5) is unarousable. Patient Monitoring Once the patient has demonstrated a response to the naloxone, continue to monitor respiratory rate, depth, oxygen saturation and end-tidal CO2 (if available) every 15 minutes x 2, then every 30 minutes x 2, then every 1 hour x 1 after each naloxone dose. Consider transfer to ICU if patient respiratory parameters have not improved after 4 naloxone doses., Intra-procedure naloxone (NARCAN) injection 0.4 mg 0.4 mg, Intravenous, EVERY 2 MIN PRN, opioid reversal, Starting on Fri05/04/25 at 0842, Administer intravenous route when available and notify provider when administered. For unintended sedation or respiratory depression if all of the below criteria are met: ~ respiratory rate LESS than or EQUAL to 8. ~ SaO2 less than 92% and or/end-tidal CO2 is greater than 50. ~ the patient is receiving an opioid, has unintended sedation assessed as RASS (-4) or (-5) and patient is currently not on mechanical ventilation. RASS scale (-4) is deep sedation with no response to voice but movement or eye opening to physical stimulation. RASS scale (-5) is unarousable. Patient Monitoring Once the patient has demonstrated a response to the naloxone, continue to monitor respiratory rate, depth, oxygen saturation and end-tidal CO2 (if available) every 15 minutes x 2, then every 30 minutes x 2, then every 1 hour x 1 after each naloxone dose. Consider transfer to ICU if patient respiratory parameters have not improved after 4 naloxone doses. naloxone (NARCAN) injection 0.4 mg 0.4 mg, Intramuscular, EVERY 2 MIN PRN, opioid reversal, Starting on Fri05/04/25 at 0842, Administer intramuscular if an intravenous route is not available and notify provider when administered. For unintended sedation or respiratory depression if all of the below criteria are met: ~ respiratory rate LESS than or EQUAL to 8. ~ SaO2 less than 92% and or/end-tidal CO2 is greater than 50. ~ the patient is receiving an opioid, has unintended sedation assessed as RASS (-4) or (-5) and patient is currently not on mechanical ventilation. RASS scale (-4) is deep sedation with no response to voice but movement or eye opening to physical stimulation. RASS scale (-5) is unarousable. Patient Monitoring Once the patient has demonstrated a response to the naloxone, continue to monitor respiratory rate, depth, oxygen saturation and end-tidal CO2 (if available) every 15 minutes x 2, then every 30 minutes x 2, then every 1 hour x 1 after each naloxone dose. Consider transfer to ICU if patient respiratory parameters have not improved after 4 naloxone doses. ondansetron (ZOFRAN ODT) ODT tab 4 mg(Linked Group 2) 4 mg, Oral, EVERY 6 HOURS PRN, nausea/vomiting - 1st line, Starting on Fri05/04/25 at 0842, This is Step 1 of nausea and vomiting management. If nausea not resolved in 15 minutes, go to Step 2 prochlorperazine (COMPAZINE). With dry hands, peel back foil backing and gently remove tablet. Do not push oral disintegrating tablet through foil backing. Administer immediately on tongue and oral disintegrating tablet dissolves in seconds, then swallow with saliva. Liquid not required. ondansetron (ZOFRAN) injection 4 mg 4 mg, Intravenous, ONCE PRN, nausea/vomiting - 1st line, Administer over 2-5 Minutes, Starting on Fri05/04/25 at 0803, For 1 dose, Give in ENDO pre procedure prep area., Pre-procedure ondansetron (ZOFRAN) injection 4 mg(Linked Group 2) 4 mg, Intravenous, EVERY 6 HOURS PRN, nausea/vomiting - 1st line, Administer over 2-5 Minutes, Starting on Fri05/04/25 at 0842, Give IF patient unable to tolerate oral medication. This is Step 1 of nausea and vomiting management. If nausea not resolved in 15 minutes, go to Step 2 prochlorperazine (COMPAZINE). prochlorperazine (COMPAZINE) injection 10 mg(Linked Group 3) 10 mg, Intravenous, EVERY 6 HOURS PRN, nausea/vomiting - 2nd line, Administer over 1-2 Minutes, Starting on Fri05/04/25 at 0842, Give IF patient unable to tolerate oral medication. This is Step 2 of nausea and vomiting management. Give if nausea not resolved 15 minutes after giving ondansetron (ZOFRAN). If nausea not resolved in 15-30 minutes, Notify provider. prochlorperazine (COMPAZINE) tablet 10 mg(Linked Group 3) 10 mg, Oral, EVERY 6 HOURS PRN, nausea/vomiting - 2nd line, Starting on Fri05/04/25 at 0842, This is Step 2 of nausea and vomiting management. Give if nausea not resolved 15 minutes after giving ondansetron (ZOFRAN). If nausea not resolved in 15-30 minutes, Notify provider. simethicone (MYLICON) suspension 133 mg 133 mg, Oral, ONCE PRN, other, gas bubbles, Starting on Fri05/04/25 at 0802, For 1 dose, Give via endoscope, Intra-procedure sodium chloride (PF) 0.9% PF flush 3 mL 3 mL, Intracatheter, EVERY 1 MIN PRN, line flush, other, to ensure patency or to lock dormant line, Starting on Fri05/04/25 at 0803, Pre-procedure 0809 ($Given - Provi babatunde: Benita Alfaro RN)0812 ($Given - Provider: Benita Alfaro RN) sodium chloride (PF) 0.9% PF flush 3 mL 3 mL, Intravenous, EVERY 1 MIN PRN, line flush, Starting on Fri05/04/25 at 0802, Indications: for Peripheral IV flush post IV meds, Intra-procedure sodium chloride 0.9 % infusion Intravenous, CONTINUOUS PRN, Intra-procedure, Starting on Fri05/04/25 at 0739, Until Fri05/04/25 at 0948 0739 ($New Bag - Pro vider: Cinthia Colunga RN)0804 (Rate/Dose Verify - Provider: Benita Alfaro RN)0827 (Stopped - Provider: Benita Alfaro RN) sodium chloride 0.9% BOLUS 500 mL Intravenous, 500 mL, ONCE PRN, at 500 mL/hr, Administer over 1 Hours, other, hypotension, Starting on Fri05/04/25 at 0802, For 1 dose, Intra-procedure Linked Groups Order Group 1: naloxone (NARCAN) injection 0.2 mgJump to med 0.2 mg, Intravenous, EVERY 2 MIN PRN, opioid reversal, Starting on Fri05/04/25 at 0802, Administer intravenous route when available and notify provider when administered. For unintended sedation or respiratory depression if all of the below criteria are met: ~ respiratory rate LESS than or EQUAL to 8. ~SaO2 less than 92% and or/end-tidal CO2 is greater than 50. ~ the patient is receiving an opioid, has unintended sedations assessed as RASS (-3), and is currently not on mechanical ventilation. RASS scale moderate (-3) is movement or eye opening to voice but no eye contact. Patient Monitoring Once the patient has demonstrated a response to the naloxone, continue to monitor respiratory rate, depth, oxygen saturation and end-tidal CO2 (if available) every 15 minutes x 2, then every 30 minutes x 2, then every 1 hour x 1 after each naloxone dose. Consider transfer to ICU if patient respiratory parameters have not improved after 4 naloxone doses., Intra- procedure Or naloxone (NARCAN) injection 0.4 mgJump to med 0.4 mg, Intravenous, EVERY 2 MIN PRN, opioid reversal, Starting on Fri05/04/25 at 0802, Administer intravenous route when available and notify provider when administered. For unintended sedation or respiratory depression if all of the below criteria are met: ~ respiratory rate LESS than or EQUAL to 8. ~ SaO2 less than 92% and or/end-tidal CO2 is greater than 50. ~ the patient is receiving an opioid, has unintended sedation assessed as RASS (-4) or (-5) and patient is currently not on mechanical ventilation. RASS scale (-4) is deep sedation with no response to voice but movement or eye opening to physical stimulation. RASS scale (-5) is unarousable. Patient Monitoring Once the patient has demonstrated a response to the naloxone, continue to monitor respiratory rate, depth, oxygen saturation and end-tidal CO2 (if available) every 15 minutes x 2, then every 30 minutes x 2, then every 1 hour x 1 after each naloxone dose. Consider transfer to ICU if patient respiratory parameters have not improved after 4 naloxone doses., Intra-procedure Or naloxone (NARCAN) injection 0.2 mgJump to med 0.2 mg, Intramuscular, EVERY 2 MIN PRN, opioid reversal, Starting on Fri05/04/25 at 0802, Administer intramuscular if an intravenous route is not available and notify provider when administered. For unintended sedation or respiratory depression if all of the below criteria are met: ~ respiratory rate LESS than or EQUAL to 8. ~SaO2 less than 92% and or/end-tidal CO2 is greater than 50. ~ the patient is receiving an opioid, has unintended sedations assessed as RASS (-3), and is currently not on mechanical ventilation. RASS scale moderate (-3) is movement or eye opening to voice but no eye contact. Patient Monitoring Once the patient has demonstrated a response to the naloxone, continue to monitor respiratory rate, depth, oxygen saturation and end-tidal CO2 (if available) every 15 minutes x 2, then every 30 minutes x 2, then every 1 hour x 1 after each naloxone dose. Consider transfer to ICU if patient respiratory parameters have not improved after 4 naloxone doses., Intra- procedure Or naloxone (NARCAN) injection 0.4 mgJump to med 0.4 mg, Intramuscular, EVERY 2 MIN PRN, opioid reversal, Starting on Fri05/04/25 at 0802, Administer intramuscular if an intravenous route is not available and notify provider when administered. For unintended sedation or respiratory depression if all of the below criteria are met: ~ respiratory rate LESS than or EQUAL to 8. ~ SaO2 less than 92% and or/end-tidal CO2 is greater than 50. ~ the patient is receiving an opioid, has unintended sedation assessed as RASS (-4) or (-5) and patient is currently not on mechanical ventilation. RASS scale (-4) is deep sedation with no response to voice but movement or eye opening to physical stimulation. RASS scale (-5) is unarousable. Patient Monitoring Once the patient has demonstrated a response to the naloxone, continue to monitor respiratory rate, depth, oxygen saturation and end-tidal CO2 (if available) every 15 minutes x 2, then every 30 minutes x 2, then every 1 hour x 1 after each naloxone dose. Consider transfer to ICU if patient respiratory parameters have not improved after 4 naloxone doses., Intra- procedure Group 2: ondansetron (ZOFRAN ODT) ODT tab 4 mgJump to med 4 mg, Oral, EVERY 6 HOURS PRN, nausea/vomiting - 1st line, Starting on Fri05/04/25 at 0842, This is Step 1 of nausea and vomiting management. If nausea not resolved in 15 minutes, go to Step 2 prochlorperazine (COMPAZINE). With dry hands, peel back foil backing and gently remove tablet. Do not push oral disintegrating tablet through foil backing. Administer immediately on tongue and oral disintegrating tablet dissolves in seconds, then swallow with saliva. Liquid not required. Or ondansetron (ZOFRAN) injection 4 mgJump to med 4 mg, Intravenous, EVERY 6 HOURS PRN, nausea/vomiting - 1st line, Administer over 2-5 Minutes, Starting on Fri05/04/25 at 0842, Give IF patient unable to tolerate oral medication. This is Step 1 of nausea and vomiting management. If nausea not resolved in 15 minutes, go to Step 2 prochlorperazine (COMPAZINE). Group 3: prochlorperazine (COMPAZINE) injection 10 mgJump to med 10 mg, Intravenous, EVERY 6 HOURS PRN, nausea/vomiting - 2nd line, Administer over 1-2 Minutes, Starting on Fri05/04/25 at 0842, Give IF patient unable to tolerate oral medication. This is Step 2 of nausea and vomiting management. Give if nausea not resolved 15 minutes after giving ondansetron (ZOFRAN). If nausea not resolved in 15-30 minutes, Notify provider. Or prochlorperazine (COMPAZINE) tablet 10 mgJump to med 10 mg, Oral, EVERY 6 HOURS PRN, nausea/vomiting - 2nd line, Starting on Fri05/04/25 at 0842, This is Step 2 of nausea and vomiting management. Give if nausea not resolved 15 minutes after giving ondansetron (ZOFRAN). If nausea not resolved in 15-30 minutes, Notify provider. documented in this encounter Care Teams Referral Manager Relationship Specialty Start Date End Date No Ref-Primary, Physician PCP - General 05/04/25 documented as of this encounter
--- OUTSIDE RECORDS SUMMARY | 2025-05-04 07:00 | XMS_ITS | Encounter Summary ---
Author Organization [facility] Address [address] [place] [address] Care Team Providers Care Vocational School Teacher Name Role Phone No Ref-Primary, Physician Primary Care Provider Encounter Details Date Type Department Care Team (Late st Contact Info) Description 05/04/2025 7:00 AM CDT Office Visit [facility] Legal Executive Assistant Services [phone] Swetha Izquierdo Social History Tobacco Use Types Packs/Day Years Used Date Smoking Tobacco: Never Smokeless Tobacco: Never Alcohol Use Standard Drinks/Week Comments Not Currently 0 (1 standard drink = 0.6 oz pur e alcohol) Comments Unknown Sex and Gender Information Value Date Recorded Sex Assigned at Not on file Legal Sex Female 3:06 PM CDT Gender Identity Not on file Sexual Orientation Not on file documented as of this encounter Plan of Treatment Not on file documented as of this encounter Visit Diagnoses Not on filedocumented in this encounter Care Teams Vocational School Teacher Relationship Specialty Start Date End Date No Ref-Primary, Physician PCP - General 05/04/25 documented as of this encounter
--- OUTSIDE RECORDS SUMMARY | 2025-05-04 08:00 | XMS_ITS | Encounter Summary ---
Author Organization [facility] Address [address] [place] [address] Care Team Providers Care Track Production Engineer Name Role Phone No Ref-Primary, Physician Primary Care Provider Encounter Details Date Type Department Care Team (Late st Contact Info) Description 05/04/2025 8:00 AM CDT - 05/04/2025 8:45 AM CDT Surgery [facility] [place] [address] [place] [address] Patria Mcadams MD [place] [facility] [address] [place] [address] Colonoscopy, Screening with polypectomies using exacto cold snare Surgery Details Date/Time Status Location OR Service Patient Class Case Class Case Type Trauma Case? 05/04/2025 8:00 AM Posted GI GI B Gastroenterology Outpatient Elective Panel 1 Procedure LRB Anes Op Region Wound Class Comments Colonoscopy, Screening with polypectomies using exacto cold snare N/A Moderate Sedation Rectum II-Clean Con taminated Surgeon Surgeon Role Service Panel Patria Mcadams MD Primary Gastroenterology 1 Special Needs Free Screening Colonoscopy Patient documented in this encounter Social History Tobacco Use Types Packs/Day Years [...] Sign Reading Time Taken Comments Blood Pressure 101/64 05/04/2025 8:40 AM CDT Pulse 54 05/04/2025 8:40 AM CDT Temperature 36.5 C (97.7 F) 05/04/2025 8:00 AM CDT Respiratory Rate 16 05/04/2025 8:40 AM CDT Oxygen Saturation 99% 05/04/2025 8:40 AM CDT Inhaled Oxygen Concentration - - [...] sent through Care Everywhere. * Colon Polyps (Indonesian) * Hemorrhoids (Indonesian) documented in this encounter Procedure Notes * [...] IMPRESSION: screening PLAN: colonoscopy Patria Mcadams MD [place] [facility] Office: [phone] documented in this encounter Plan of Treatment [...] CDT) Case Report Surgical Pathology Report Case: [id number] Authorizing Provider: Patria Mcadams MD Collected: 05/04/2025 08:23 AM Ordering Location: [facility] Received: 05/04/2025 08:50 AM End[place] Pathologist: Eh Ryder MD Specimens: A) - Large Intestine, Colon, Cecum, cecal polyp x1 B) - Large Intestine, Colon, Ascending, Ascending polyp x1 05/05/2025 10:12 AM CDT [facility] Final Diagnosis A. Colon, cecum, polypectomy: -- Hyperplastic polyp. B. Colon, ascending, polypectomy: -- Nondysplastic colonic mucosa without diagnostic abnormality. 05/05/2025 10:12 AM CDT LABORATORY at 1012 CDT Clinical Information Procedure: Colonoscopy, Screening with polypectomies using exacto cold snare Pre-op Diagnosis: Abdominal pain [R10.9] Post-op Diagnosis: R10.9 - Abdominal pain [ICD-10-CM] 05/05/2025 10:12 AM CDT [facility] Gross Description A(1). Large Intestine, Colon, [...] Microscopic examination was performed. 05/05/2025 10:12 AM CDT LABORATORY Performing Labs The technical component of this testing was completed at [facility]. Stain controls for all stains [...] LAB - HIEN AP Final Res ult [facility] [address] Lab (1st floor, no room number) [place] [address] * COLONOSCOPY (05/04/2025 7:44 AM CDT) COLONOSCOPY [facility] Patient Name: Angelica Hunterzon Procedure Date: 05/04/2025 7:44 AM Date of [...] continuously. The Olympus Pediatric Colonoscope Model # PCF-VL995M, Censitrac # [id number] was introduced through the anus and advanced [...] pathology results. Procedure Code(s): --- Professional --- 47891, Colonoscopy, flexible; with removal of tumor(s), polyp(s), or other lesion(s) by snare technique CPT copyright 2021 [employer]. All rights reserved. The codes documented in this report are preliminary and upon death surveys coder review may be revised to meet current [...] RESULTS documented in this encounter Visit Diagnoses Diagnosis Abdominal pain Abdominal pain, unspecified site documented in this encounter Administered Medications Inactive Administered [...] on Fri05/04/25 at 0802, For 1 dose, [place] throat with 1 spray 5 minutes prior [...] on Fri05/04/25 at 0802, For 1 dose, [place] throat with 1 spray 5 minutes prior [...] direct oversight of patient by physician., Intra-procedure 0809 ($Given - Provi babatunde: Benita Alfaro RN) [...] provider. documented in this encounter Care Teams Track Production Engineer Relationship Specialty Start Date End Date No Ref-Primary, Physician PCP - General 05/04/25 documented as of this encounter
--- NOTE | 2025-05-31 15:40 | CRLHL7_ITS ---
For Patients: As a result of the Century Cures Act, medical imaging exams and procedure reports are released immediately into your electronic medical record. You may view this report before your referring provider. If you have questions, please contact your health care provider. INDICATION: BILATERAL SCREENING MAMMOGRAM, ASYMPTOMATIC 54 Y/O FEMALE COMPARISON: 11/28/2023, 10/11/2022, 08/20/2021 TECHNIQUE: Digital mammogram in CC and MLO projections including computer-aided detection (CAD) and tomosynthesis. BREAST COMPOSITION: There are scattered areas of fibroglandular density. FINDINGS: No suspicious findings. ASSESSMENT: BI-RADS 1 Negative RECOMMENDATION: Annual screening mammogram. A lay language report of this examination will be provided to the patient. Dictated by: Willis Walters MD @ 06/06/2025 12:43:03 (Electronically Signed)
--- OUTSIDE RECORDS SUMMARY | 2025-06-01 00:13 | XMS_ITS | Clinical Summary ---
Author Organization [facility] Address [address] [place] [address] Care Team Providers Care Risk And Insurance Consultant Name Role Phone No Ref-Primary, Physician Primary Care Provider Allergies Active Allergy Reactions Criticality Noted Date Comments Penicillin G GI Disturbance 05/04/2025 Medications No known medications Encounters Date Type Department Care Team Description 05/04/2025 8:00 AM CDT - 05/04/2025 8:45 AM CDT Surgery [facility] End[facility] [place] [address] [place] [address] Patria Mcadams MD Colonoscopy, Screening with polypectomies using exacto cold snare 05/04/2025 7:00 AM CDT Office Visit [facility] Inspector Returned Materials Services [phone] Swetha Izquierdo 05/04/2025 6:54 AM CDT - 05/04/2025 9:15 AM CDT Hospital Encounter [facility] [place] [address] [place] [address] Patria Mcadams MD Discharge Disposition: Home or Self Care 05/04/2025 Travel from Last 3 Months Family History Medical History Relation Comments Colon Cancer No family hx of Social History Tobacco Use Types Packs/Day Years [...] on file Sexual Orientation Not on file Last Filed Vital Signs Vital Sign Reading [...] - - Body Mass Index - - Plan of Treatment Health Maintenance Due Date Last Done Comments ADVANCE CARE PLANNING 1969 ANNUAL REVIEW OF HM ORDERS 1969 CT COLONOGRAPHY 1969 DIABETES SCREENING 1969 FIT 1969 FLEX SIG 1969 sDNA (Cologuard) 1969 LIPID 2009 PNEUMOCOCCAL VACCINE 50+ YEARS (1 of 1 - PCV) 2019 ZOSTER VACCINE (1 of 2) 2019 HEPATITIS B VACCINE (3 of 3 - 19+ 3-dose series) 02/17/2024 09/18/2023, 08/19/2023 COVID-19 VACCINE ( - 2023- season) 2024 09/18/2023, 02/13/2021, 01/23/2021 PHQ-2 (once per calendar year) 2024 YEARLY PREVENTIVE VISIT 11/28/2024 11/28/2023 INFLUENZA VACCINE (#1) 2025 , 06/16/2018, 10/04/2013, Additional history exists MAMMO SCREENING 11/28/2025 11/28/2023, 11/13, 10/11/2022, Additional history exists PAP 11/28/2026 11/28/2023 DTAP/TDAP/TD VACCINE (4 - Td or Tdap) 08/19/2033 08/19/2023, 05/19/2009, 12/30/2008 COLONOSCOPY 05/04/2035 05/04/2025, 05/04/2025 COLORECTAL CANCER SCREENING 05/04/2035 HEPATITIS C SCREENING Completed 11/28/2023 HIV SCREENING Completed 11/28/2023 HPV VACCINE (No Doses Required) Completed MENINGITIS VACCINE Aged Out No longer eligible based on patient's age to complete this topic Procedures Procedure Name Priority Date/Time Associated Diagnosis Comments SURGICAL PATHOLOGY EXAM Routine 05/04/2025 8:23 AM CDT COLONOSCOPY W SNARE REMOVAL TUMOR/POLYP/LESION 05/04/2025 7:55 AM CDT Abdominal pain Special Needs Free Screening Colonoscopy Patient COLONOSCOPY Routine 05/04/2025 7:44 AM CDT from Last 3 Months Results * Surgical Pathology Exam (05/04/2025 8:23 AM CDT) Case Report Surgical Pathology Report Case: [id number] Authorizing Provider: Patria Mcadams MD Collected: 05/04/2025 08:23 AM Ordering Location: [facility] Received: 05/04/2025 08:50 AM Endoscopy [place] Pathologist: Eh Ryder MD Specimens: A) - [...] component of this testing was completed at [facility]. Stain controls for all stains [...] LAB - HIEN AP Final Res ult [facility] Acute [facility] Lab [address] Lab (1st floor, no room number) [place] [address], [facility] * COLONOSCOPY (05/04/2025 7:44 AM CDT) COLONOSCOPY [facility] Patient Name: Angelica Hunterzon Procedure Date: 05/04/2025 [...] continuously. The Olympus Pediatric Colonoscope Model # PCF-MP618X, Censitrac # [id number] was introduced through the anus and advanced [...] pathology results. Procedure Code(s): --- Professional --- 10758, Colonoscopy, flexible; with removal of tumor(s), polyp(s), or other lesion(s) by snare technique CPT copyright 2021 [employer]. All rights reserved. The codes documented in this report are preliminary and upon legal service specialist review may be revised to meet current [...] MD PROCEDURES Final Res ult RADIOLOGY RESULTS from Last 3 Months Care Teams Risk And Insurance Consultant Relationship Specialty Start Date End Date No Ref-Primary, Physician PCP - General 05/04/25
--- OUTSIDE RECORDS SUMMARY | 2025-06-01 00:13 | XMS_ITS | Encounter Summary ---
Author Organization [facility] Address [address] [place] [address] Care Team Providers Care Passenger Car Inspector Name Role Phone No Ref-Primary, Physician Primary Care Provider Encounter Details Date Type Department Care Team (Latest Contact Info) Description 05/04/2025 Travel Social History Tobacco Use Types Packs/Day Years [...] on filedocumented in this encounter Care Teams Passenger Car Inspector Relationship Specialty Start Date End Date No Ref-Primary, Physician PCP - General 05/04/25 documented as of this encounter
--- OUTSIDE RECORDS SUMMARY | 2025-06-01 00:13 | XMS_ITS | Clinical Summary ---
Author Organization [facility] Address [address] [place] [address] Care Team Providers Care Modeling Agency Manager Name Role Phone SebleShanon cedeño MD Primary Care Provider Allergies Active Allergy Reactions Criticality Noted Date Comments Penicillins Stomach Upset 12/04/2007 Medications cetirizine (ZyrTEC) 10 mg tablet Take 10 mg by mouth once daily. Active calcium carbonate-vitamin D3, 600 mg-400 unit, 600 mg-10 mcg (400 unit) tablet Take 1 Tablet by mouth two times daily with meals. 4 Active Rbasf-1-UGM-EPA-Fis h Oil 1,000 mg (120 mg-180 mg) cap Take 1 Capsule (1,000 mg) by mouth. 4 Active olopatadine (PATADAY) 0.2 % ophthalmic solutionIndications :Allergic conjunctivitis of both eyes Place 1 Drop into both eyes once daily. 5 mL 3 4 Active fluorometholone (FML Liquifilm) 0.1 % ophthalmic suspensionIndicatio ns:Keratitis sicca, bilateral Place 1 Drop into both eyes two times daily. 10 mL 2 5 Active omeprazole (PRILOSEC) 20 mg Delayed-Release capsule Take 20 mg by mouth once daily before a meal. 4 Active tiZANidine (ZANAFLEX) 2 mg tabletIndications:L umbar pain,Myalgia Take 1-2 Tablets (2-4 mg) by mouth at bedtime. 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 01/31/2006 Lattice degeneration of peripheral retina 2005 Pterygium, unspecified 01/31/2006 Resolved Problems Problem Noted Date Diagnosed Date Resolved Date Pap smear for cervical cancer screening 11/13/2023 05/04/2024 Overview (12/04/2023): 11/2023 NIL/HPV negative Pap/HPV due in 5 years Other abnormal Papanicolaou smear of cervix and cervical HPV(795.09) 01/24/2009 05/26/2019 Overview (01/24/2009): ELZBIETA 1 on colp 01/19 Myopia 01/31/2006 12/30/2008 Encounters Date Type Department Care Team Description 03/31/2025 2:45 PM CDT Office Visit [facility] [address] [place] [address] Darren Farooq MD Follow Up (FU dry eye) 03/31/2025 Travel from Last 3 Months Immunizations Immunization Administration Dates Next Due AMB Influenza, IIV3 [...] 4 11/28/2023 Social Connections Answer Date Recorded Do you often feel lonely or isolated from those around you? 0 12/09/2024 Financial Resource Strain Answer Date R ecorded Difficulty of Paying Living Expenses 2 12/09/2024 Difficulty of Paying Living Expenses 1 12/09/2024 Food Insecurity Answer Date Recorded Do you worry your food will run out before you are able to buy more? 2 12/09/2024 Transportation Needs Answer Date Record ed Does lack of transportation keep you from medica l appointments? 1 12/09/2024 Does lack of transportation keep you from work, meetings or getting things that you need? 2 12/09/2024 Housing Stability Answer Date Recorded What is your housing situation today? 1 12/09/2024 Utilities Answer Date Recorded Do you have trouble paying f or utilities (for example, heat, electricity, water, phone)? 2 12/09/2024 Comments No Sex and Gender Information Value Date Recorded Sex Assigned at Not on file Legal Sex Female 5:22 AM [employer] Gender Identity Not on file Sexual Orientation Not on file Occupation Industry Job Start Date Job End Date Not on file Not on file Not on file Not on file Obstetrics History Para Term AB IAB SAB Ectopic Multiple Livin g Live Births 3 2 2 Date Outcome GA Total Labor Labor/2nd/3rd Weight Sex Type Anes PTL Valerie A1 A5 Name Clin Para Para Comments Had one late loss in third t rimester. Unknown cause, per her report. Last Filed Vital Signs Vital Sign Reading Time Taken Comments Blood Pressure 119/77 12/09/2024 2:35 PM [employer] Pulse 66 12/09/2024 2:35 PM [employer] Temperature 36.8 C (98.2 F) 08/28/2018 10:34 AM [employer] Respiratory Rate 16 04/28/2019 3:12 PM CDT Oxygen Saturation 95% 12/09/2024 2:35 PM [employer] Inhaled Oxygen Concentration - - Weight 80.3 kg (177 lb) 06/10/2024 1:42 PM CDT Height 161.3 cm (5' 3.5) 11/28/2023 1:21 PM [employer] Body Mass Index 30.86 11/28/2023 1:21 PM [employer] Plan of Treatment Upcoming Encounters Date Type Department Care Team (Late st Contact Info) Description 08/02/2025 3:15 PM CDT Office Visit [facility] [address] [place], [place] [address] Darren Farooq MD [address] [place], [place] [phone] Health Maintenance Due Date Last Done Comments Colonoscopy through age 75 2014 Pneumococcal series for age 50+ (1 of 1 - PCV) 2019 Zoster (shingles) series for age 50+ (1 of 2) 2019 Hepatitis B series for 19+ ( 3 of 3 - 19+ 3-dose series) 02/17/2024 09/18/2023, 08/19/2023 COVID-19 vaccine series ( season) 2024 09/18/2023, 02/13/2021, 01/23/2021 BMI (ht and wt on same day) for age 18+ 11/28/2024 11/28/2023, 10/11/2022, 09/13/2021, Additional history exists Mammogram for age 45-75 11/28/2024 11/28/19 24, 10/11/2022, 08/20/2021, Additional history exists Depression screening for age 12+ 12/01/2024 12/01/2023, 11/28/2023, 09/14/2021, Additional history exists Influenza Vaccine (#1) 2025 3, 06/16/2018, 10/04/2013, Additional history exists Lipids for age 45-75 11/28/2028 11/28/2023, 08/22/2022 (Completed outside of [facility]), 01/02/2009, Additional history exists Pap test for age 21-65 11/28/2028 4, 11/28/2023, 05/11/2019, Additional history exists Tetanus booster 08/19/2033 08/19/2023, 08/0 04/2009, 12/30/2008 HIV for age 15-65 Completed 11/28/2023 Hepatitis C screening for ag e 18-79 Completed 11/28/2023 Procedures Procedure Name Priority Date/Time Associated Diagnosis Comments XR MAMMO GRISELDA BILAT SCREEN Routine 11/28/2023 2:36 PM [employer]ITY [employer] Visit for screening mammogram ANTI HIV 1/2 Routine 11/28/2023 2:11 PM [employer] Screening for HIV (human immunodeficiency virus) ANTI HCV Routine 11/28/2023 2:11 PM [employer] Need for hepatitis C screening test LIPID PANEL W REFLEX MEASURED LDL Routine 11/28/2023 2:11 PM [employer] Lipid screening HPV HIGH RISK Routine 11/28/2023 1:45 PM [employer] Cervical cancer screening from Last 3 Months or Most Recently Relevant to Health Maintenance Results * XR MAMMO GRISELDA BILAT SCREEN (11/28/2023 2:36 PM [employer]) Anatomical Region Laterality Modality BREASTS, Breast Left, Breast Right Bilateral Mammography Impressions 11/28/2023 11:12 PM [employer] There is no radiographic evidence for malignancy. Recommend annual mammograms. MAMMOGRAM ASSESSMENT: ACR 1 Negative PATIENTS: You will also receive a letter with your examination results in an easy to read format. If you have questions about your results, please contact your referring provider. Narrative 11/28/2023 11:12 PM [employer] For Patients: As a result of the 21st Century Cures Act, medical imaging exams and procedure reports are released immediately into your electronic medical record. You may view this report before your referring provider. If you have questions, please contact your health care provider. XR MAMMO GRISELDA BILAT SCREEN [[id number]] CLINICAL HISTORY: This is an asymptomatic 53 y.o. patient. INDICATION FOR EXAM: Mammogram Screening. TECHNIQUE: CC & MLO views were obtained. This study was evaluated with the assistance of Computer-Aided Detection. Breast Tomosynthesis was used in interpretation. COMPARISON FILM: Yes 10/11/22 [facility] 08/20/21 [facility] FINDINGS: The breasts are heterogeneously dense, which may obscure small masses. There are no dominant masses, suspicious micro calcifications or areas of architectural distortion. us Shanon Pruett MD MAMMO Final R esult * (ABNORMAL) LIPID PANEL W REFLEX MEASURED LDL (11/28/2023 2:11 PM [employer]) CHOLESTEROL,TOTAL 220(H) 100 - 199 mg/dL 11/28/2023 9:31 PM [employer] [facility] Comment: Cholesterol, Total Reference Ranges Desirable <200 mg/dL Borderline 200-239 mg/dL High >=240 mg/dL TRIGLYCERIDES 74 <150 mg/dL 11/28/2023 9:31 PM [employer] [facility] HDL CHOLESTEROL 70 >40 mg/dL 9:31 PM [employer] [facility] NON-HDL CHOLESTEROL 150(H) <145 mg/dl 11/28/2023 9:31 PM [employer] [facility] CHOL/HDL RATIO 3.14 <4.50 11/28/2023 9:31 PM [employer] [facility] LDL CHOLESTEROL 135(H) <=130 mg/dL 11/28/2023 9:31 PM [employer] [facility] VLDL CHOLESTEROL 15 <=30 mg/dL 11/28/2023 9:31 PM [employer] [facility] PROVIDER ORDERED STATUS RANDOM 11/28/2023 9:31 PM [employer] [facility] Blood BLOOD SPECIMEN / Unknown Venipuncture / Unknown 11/28/2023 2:11 PM [employer] 11/28/2023 2:13 PM [employer] us Shanon Pruett MD CHEMISTRY Final R esult [facility] [address] [place] [address], [place] * ANTI HCV (11/28/2023 2:11 PM [employer]) HEPATITIS C ANTIBODY Non-Reacti ve Non-React olaf 11/28/2023 9:27 PM [employer] [facility] Comment:Please note, per www .CDC.gov: If a patient is known to be at high risk of HCV infection, or is symptomatic, and the physician's suspicion of HCV infection is high, HCV RNA testing is often employed and is of diagnostic value, even after an initial negative anti-HCV test result. Blood BLOOD SPECIMEN / Unknown Venipuncture / Unknown 11/28/2023 2:11 PM [employer] 11/28/2023 2:13 PM SEC[employer]ITY [employer]F [employer] Shanon Pruett MD SEND OUTS Final R esult Performing Organization Address City/[facility] Co de Phone Number [facility] [address] [place] [address], [place] * ANTI HIV 1/2 [52494.0] (11/28/2023 2:11 PM [employer]ITY [employer]) Pathologist [facility] HIV-1/HIV-2 SCREEN Non-Reacti ve Non-Reacti ve 11/28/2023 9:19 PM [employer] [facility] Comment:HIV-1 p24 and HIV-1/ HIV-2 Ab Not Detected. Blood BLOOD SPECIMEN / Unknown Venipuncture / Unknown 11/28/2023 2:11 PM [employer] 11/28/2023 2:13 PM [employer] Shanon Pruett MD SEND OUTS Final R esult [facility] [address] [place] [address], [place] * HPV HIGH RISK (11/28/2023 1:45 PM [employer]) [facility] TYPE 16 Negative Negative 12/03/2023 1:43 PM [employer] [facility] TYPE 18 Negative Negative 12/03/2023 1:43 PM [employer] [facility] OTHER HIGH RISK TYPES Negative Negative 12/03/2023 1:43 PM [employer] [facility] Other (Cervical) Non-Blood / Unknown 11/28/2023 1:45 PM [employer] 12/01/2023 12:49 PM [employer] Narrative [facility] - 12/03/2023 1:43 PM [employer] HPV types 16, 18, 31, 33, 35, 39, 45, 51, 52, 56, 58, 59, 66 and 68 DNA were undetectable or below the pre-set threshold. Methodology: Ayden Aviva 4800 HPV Test us Shanon Pruett MD MICROBIOLOGY Final R esult [facility] [address] [place] [address], from Last 3 Months or Most Recently Relevant to Health Maintenance Care Teams Modeling Agency Manager Relationship Specialty Start Date End Date Shanon Pruett MD [address] [place] [address] PCP - General Family Practice 10/25/10
== END 2025-05-31 15:27 | disposition home or self-care (01) ==
LOC: MAMMO 15:26
PROVIDERS: PCP Family Medicine; Visit Provider Family Medicine
DX: Z12.31 Encounter for screening mammogram for malignant neoplasm of breast (principal)
CPT/HCPCS: 77063; 77067; T1013